=== PATIENT | female | born 1950 | race Caucasian/White ===

== ENCOUNTER → 2016-08-11 | Outpatient (CLI) | payer BC ==
[~2016-08-11] MED LIST: BNC20 PO; ESTR0.5T3 PO; IBUP-1451 PO; LEVO100T PO; LOSA1TAB38 PO; LPT40 PO; OMEP20CA9 PO; PRAV20TA PO; PRM625 PO
[2016-08-11 12:46] LABS: BASO % 0.4 %; BASO ABS # 0.03 K/uL (0-0.2); COMPLETE YES; HEMATOCRIT 37.4 % (37-47); IG% 0.1 %; LYMPH % 29.6 %; MEAN CELL VOLUME 92.3 fL (80-100); MEAN CORPUSCULAR HEMOGLOBIN 29.4 pg (25-34); MEAN CORPUSCULAR HGB CONC 31.8 g/dl (32-36); MONO % 8.3 %; NEUT % 58.6 %; PLATELET COUNT 220 K/uL (130-400); RED BLOOD COUNT 4.05 M/uL (4.2-5.4); WHITE BLOOD COUNT 6.76 K/uL (4.8-10.8)
[2016-08-11 13:02] LABS: ALT/SGPT 22 U/L (12-78); AST/SGOT 15 U/L (15-37); BLOOD UREA NITROGEN 21 mg/dl (7-18); BUN/CREATININE RATIO 21.4 (10-20); CALCIUM 9.2 mg/dl (8.5-10.1); CARBON DIOXIDE 27 mmol/L (21-32); CHLORIDE 107 mmol/L (98-107); CHOLESTEROL 191 mg/dl (0-200); CREATININE 0.98 mg/dl (0.60-1.20); GLUCOSE 99 mg/dl (70-99); POTASSIUM 4.3 mmol/L (3.5-5.1); SODIUM 141 mmol/L (136-145); TRIGLYCERIDES 95 mg/dl (0-150); VERY LOW DENSITY LIPOPROT CALC 19 mg/dl
[2016-08-11 13:12] LABS: ALB/GLOB RATIO 0.9 (0.9-2); ALKALINE PHOSPHATASE 77 U/L (45-117); CHOLESTEROL/HDL RATIO 2.4; HDL CHOLESTEROL 81 mg/dl; LDL CHOLESTEROL CALCULATED 91 mg/dl
[2016-08-11 13:42] LABS: ESTIMATED AVERAGE GLUCOSE 126 mg/dl; HA1C FLAG Normal (Normal)
== END | disposition home or self-care (01) ==
LOC: C.LABPBG 09:50
PROVIDERS: ATTEND Internal Medicine Pulmonary Disease
DX: H81.10 Benign paroxysmal vertigo, unspecified ear (principal); E11.9 Type 2 diabetes mellitus without complications; E78.5 Hyperlipidemia, unspecified; I10 Essential (primary) hypertension; E03.9 Hypothyroidism, unspecified; H81.09 Meniere's disease, unspecified ear

== ENCOUNTER → 2016-10-24 | Outpatient (CLI) | payer BC ==
--- NOTE | 2016-10-24 09:14 | DIAGNOSTIC IMAGING REPORT ---
BILIARY ULTRASOUND CLINICAL HISTORY: Right upper quadrant abdominal pain COMPARISON STUDY: CT scan dated 12/26/2014 FINDINGS: There is mild prominence the pancreatic duct which measures 4 mm. This was not present on the prior November 2014 CT scan. Additional workup should be considered. No pancreatic masses are are visualized ultrasonographically. No hepatic masses are visualized. The gallbladder appears sonographically normal. The common bile duct measures 5 mm. There is no right-sided hydronephrosis. IMPRESSION: 1. Mild pancreatic ductal dilatation, a finding which has developed since the prior November 2014 CT scan 2. Ultrasonographically normal gallbladder. No evidence of common bile duct dilatation. Electronically signed by: Justin Valentine M.D. 10/24/2016 9:12 AM Dictated Date/Time: 10/24/2016 9:08 AM
[2016-10-24 09:57] LABS: ALT/SGPT 32 U/L (12-78); AST/SGOT 21 U/L (15-37); BLOOD UREA NITROGEN 19 mg/dl (7-18); BUN/CREATININE RATIO 17.1 (10-20); CALCIUM 9.2 mg/dl (8.5-10.1); CARBON DIOXIDE 31 mmol/L (21-32); CHLORIDE 108 mmol/L (98-107); GLUCOSE 106 mg/dl (70-99); POTASSIUM 4.6 mmol/L (3.5-5.1); SODIUM 142 mmol/L (136-145)
[2016-10-24 09:59] LABS: ALB/GLOB RATIO 0.9 (0.9-2); ALKALINE PHOSPHATASE 95 U/L (45-117)
[2016-10-24 12:49] LABS: URINE APPEARANCE CLEAR (CLEAR); URINE BILIRUBIN NEG (NEG); URINE COLOR YELLOW; URINE EPITHELIAL CELL AUTO >30 /lpf (0-5); URINE NITRITE NEG (NEG); URINE PH 6.5 (4.5-7.5); UROBILINOGEN NEG (NEG)
[2016-10-24 12:56] LABS: MANUAL MICROSCOPIC REQUIRED? NO; REVIEW REQ? NO
== END | disposition home or self-care (01) ==
LOC: C.ULTR 08:17
PROVIDERS: ATTEND Physician Assistant Medical
DX: Z00.00 Encounter for general adult medical examination without abnormal findings (principal); R10.9 Unspecified abdominal pain

== ENCOUNTER → 2016-10-25 | Outpatient (CLI) | payer BC ==
--- NOTE | 2016-10-25 14:33 | MAMMOGRAPHY REPORT ---
BILATERAL DIGITAL SCREENING MAMMOGRAM WITH CAD: 10/25/2016 TECHNIQUE: Current study was also evaluated with a Computer Aided Detection (CAD) system. Bilatera l CC and MLO views were obtained. COMPARISON: Comparison is made to exams dated: 10/19/2015 mammogram, 10/14/2014 mammogram, 10/13/2013 mammogram, 10/10/2012 mammogram, 10/10/2011 mammogram, and 10/07/2010 mammogram - [facility]. BREAST COMPOSITION: There are scattered areas of fibroglandular density in both breasts. FINDINGS: No suspicious masses, calcifications, or areas of architectural distortion are noted in e ither breast. There has been no significant interval change compared to prior exams. IMPRESSION: ACR BI-RADS CATEGORY 1: NEGATIVE There is no mammographic evidence of malignancy. A 1 year screening mammogram is recommended. The p atient will receive written notification of the results. Approximately 10% of breast cancers are not detected with mammography. A negative mammographic repor t should not delay biopsy if a clinically suggestive mass is present. Aubrie Acevedo M.D. ah/:10/25/2016 08:38:23 Predatory Animal Hunter: Mariela ATKINSON(Magda)(M), [facility] letter sent: Normal 1/2 BI-RADS Code: ACR BI-RADS Category 1: Negative
== END | disposition home or self-care (01) ==
LOC: C.MAMM 08:22
PROVIDERS: ATTEND Internal Medicine Pulmonary Disease
DX: Z12.31 Encounter for screening mammogram for malignant neoplasm of breast (principal)

== ENCOUNTER → 2016-10-30 | Outpatient (CLI) | payer BC ==
[~2016-10-30] MED LIST changes: +OPTIRAY 320 IV PRN
--- NOTE | 2016-10-30 08:27 | DIAGNOSTIC IMAGING REPORT ---
ABDOMEN CT EXAMINATION PRE AND POST INTRAVENOUS CONTRAST CT DOSE: 1365.00 mGycm HISTORY: R93.5 Abnormal ultrasound of [id number] abnormal ultrasound. Pancreatic ductal distention. TECHNIQUE: Multiaxial CT images of the abdomen was performed pre and post intravenous contrast enhancement. COMPARISON STUDY: 12/26/2014 FINDINGS: Slight interval increase in prominence of the pancreatic duct at 3 mm. Moderate atrophy of the pancreatic body. Transaxial image 1:15 suggests possibility of a 8 mm focus of increased density at the proximal pancreatic duct region. No biliary ductal distention. Mild fatty infiltration of liver. No significant space-occupying lesion of the liver or spleen. Kidneys enhance uniformly. No significant upper abdominal adenopathy. Atherosclerotic change abdominal aorta. Gallbladder is somewhat contracted. IMPRESSION: 1. Slight prominence of the pancreatic duct at 3 mm with a possible 8 mm nodular density at the distal aspect of the pancreatic duct proximal to and/or adjacent to the sphincter area . 2. Endoscopic ultrasonography is suggested to exclude a lesion at this site. 3. Study is otherwise negative. Electronically signed by: James Reina M.D. 10/30/2016 8:26 AM Dictated Date/Time: 10/30/2016 8:17 AM
== END | disposition home or self-care (01) ==
LOC: C.CTS 07:09
PROVIDERS: ATTEND Physician Assistant Medical
DX: R93.5 Abnormal findings on diagnostic imaging of other abdominal regions, including retroperitoneum (principal)

== ENCOUNTER → 2016-12-04 | Outpatient (CLI) | payer BC ==
[~2016-12-04] MED LIST changes: +GADAVIST IV PRN; -OPTIRAY 320 IV PRN
--- NOTE | 2016-12-04 09:24 | DIAGNOSTIC IMAGING REPORT ---
MRI ABDOMEN COMBO CLINICAL HISTORY: Pancreatic ductal dilatation. Abnormal CT scan. Possible axillary mass. TECHNIQUE: Imaging was performed prior to and following IV contrast injection. The patient was scanned before and after the administration of 7.6 cc of intravenous Gadavist. COMPARISON STUDY: CT scan dated 10/30/2016 FINDINGS: No hepatic masses are visualized. There is no intra or extrahepatic biliary ductal dilatation. No gallbladder abnormalities are visualized. No splenic masses are visualized. No renal masses are visualized. No adrenal masses are visualized. There is no evidence of abdominal aortic dilatation. There is mild pancreatic ductal dilatation. The pancreatic duct appears somewhat beaded. There is an abrupt change in caliber of the pancreatic duct at the level of the head neck junction. The distal pancreatic duct is of normal caliber. No ampullary lesions are visualized. The abrupt change in ductal caliber could indicate a underlying pancreatic mass or stricture. There is slight infiltration of the fat adjacent to the pancreatic head. There is no pathologic adenopathy. IMPRESSION: 1. Mild pancreatic ductal dilatation with an abrupt change in the caliber of the pancreatic duct at the level of the head neck junction. There is subtle infiltration the fat adjacent to the pancreatic head. 2. A discrete pancreatic mass is not identified on this examination 3. The above-mentioned findings could either be on a neoplastic or inflammatory basis. Endoscopic ultrasound might be considered in follow-up. Electronically signed by: Justin Valentine M.D. 12/04/2016 9:22 AM Dictated Date/Time: 12/04/2016 9:08 AM
== END | disposition home or self-care (01) ==
LOC: C.MRI 07:19
PROVIDERS: ATTEND Internal Medicine Gastroenterology
DX: R93.8 Abnormal findings on diagnostic imaging of other specified body structures (principal)

== ENCOUNTER → 2017-02-09 | Day surgery (SDC) | payer BC ==
[2017-01-29 08:59] VITALS: BMI 31.0
[~2017-02-09] VITALS: Ht 154.9 cm; Wt 77.5 kg
[~2017-02-09] MED LIST changes: +ATROPINE SULFATE 0.1 MG/ML 5ML SYR IV PRN; -BNC20 PO; +DEXAMETHASONE SOD INJ 4 MG/ML VIAL ONE; +EpHEDrine SULFATE 50MG/5ML SYR ONE; +EpHEDrine SULFATE INJ 50 MG/ML AMP IV PRN; +FENTANYL CITRATE INJ 50 MCG/1 ML 2 ML VIAL IV PRN; +FENTANYL CITRATE INJ 50 MCG/1 ML 2 ML VIAL ONE; -GADAVIST IV PRN; +LACTATED RINGER'S 1000ML 1,000 ML IV SCH; +LIDOCAINE HCL 2% 2 ML VIAL (20MG/ML) ONE; +MIDAZOLAM HCL 1 MG/ML 2ML VIAL ONE; +ONDANSETRON INJ 2 MG/ML 2 ML VIAL IV PRN; +ONDANSETRON INJ 2 MG/ML 2 ML VIAL ONE; -PRM625 PO; +PROPOFOL IV EMULSION 10 MG/ML 20 ML VIAL IV ONE; +ROCURONIUM BROMIDE 10 MG/ML 5 ML VIAL ONE; +SODIUM CHLORIDE 0.9% 500ML 500 ML IV ONE; +SUCCINYLCHOLINE CHLORIDE 20 MG/ML 10 ML VIAL IV ONE
[2017-02-09 06:20] VITALS: BP 122/59; PULSE 45; TEMP 36.5; O2SAT 97; Ht 154.9 cm; Wt 77.5 kg
--- NOTE | 2017-02-09 08:03 | Endo History and Physical ---
History & Physical Date of Service: Feb 09, 2017. Chief Complaint: abnormal MR/Ct of pancreas Referring Physician: History of Present Illness abnormal MRI/CT with dilated duct / ? peripancreatic fullness Past Surgical History Hx Cardiac Surgery: No Hx Abdominal Surgery: Yes (HYSTERECTOMY) Hx Post-Op Nausea and Vomiting: No Hx Cancer Surgery: No Hx Thoracic Surgery: No Hx Orthopedic: Yes (BILATERAL SHOULDER REPAIRS, RT HAND CTR) Hx Urinary Tract Surgery: No Social History Smoking Status: Former Smoker Hx Substance Use: No Hx Alcohol Use: No Allergies Coded Allergies: No Known Allergies (Verified , 02/09/17) Current Medications Reported Home Medications Medications Dose Route/Sig Max Daily Dose Days Date Category Motrin (Ibuprofen) 800 Mg Tab 800 Mg PO Q8H PRN 02/09/17 Reported Cozaar (Losartan Potassium) 100 Mg Tab 100 Mg PO QAM 01/29/17 Reported Pravachol (Pravastatin Sodium) 20 Mg Tab 40 Mg PO QAM 01/29/17 Reported Estradiol 0.5 Mg Tab 1 Mg PO QAM 30 01/29/17 Reported Synthroid (Levothyroxine Sodium) 100 Mcg Tab 100 Mcg PO QAM 12/26/14 Reported Atorvastatin Calcium (Atorvastatin) 40 Mg Tab 40 Mg PO QAM 12/26/14 Reported Prilosec (Omeprazole) 20 Mg Cap 20 Mg PO DAILY 12/26/14 Reported Vital Signs Weight (Kilograms): 77.50 Height (Feet): 5 Height (Inches): 1 Date Time Temp Pulse Resp B/P (MAP) Pulse Ox O2 Delivery O2 Flow Rate FiO2 02/09/17 06:20 36.5 45 18 122/59 (80) 97 Room Air Physical Exam AAOx3 Nls1s2 Lungs CTA Abd soft NT/ND + BS - CCE Assessment and Plan EUS today
--- NOTE | 2017-02-09 09:52 | Discharge Instructions ---
Endoscopy Patient Instructions Date / Procedure(s) Performed Feb 09, 2017. Other Allergy Information Coded Allergies: No Known Allergies (Verified , 02/09/17) Discharge Date / Findings Feb 09, 2017. 1) nl CBD dilated PD in boddy/tail possible transition zone near head region- FNA performed No abn LNs ampulla wnl GB nl Medication Instructions Restart Stopped Medication(s): Reported Home Medications Medications Dose Route/Sig Max Daily Dose Days Date Category Motrin (Ibuprofen) 800 Mg Tab 800 Mg PO Q8H PRN 02/09/17 Reported Cozaar (Losartan Potassium) 100 Mg Tab 100 Mg PO QAM 01/29/17 Reported Pravachol (Pravastatin Sodium) 20 Mg Tab 40 Mg PO QAM 01/29/17 Reported Estradiol 0.5 Mg Tab 1 Mg PO QAM 30 01/29/17 Reported Synthroid (Levothyroxine Sodium) 100 Mcg Tab 100 Mcg PO QAM 12/26/14 Reported Atorvastatin Calcium (Atorvastatin) 40 Mg Tab 40 Mg PO QAM 12/26/14 Reported Prilosec (Omeprazole) 20 Mg Cap 20 Mg PO DAILY 12/26/14 Reported Reported Home Medications Medications Dose Route/Sig Max Daily Dose Days Date Category Motrin (Ibuprofen) 800 Mg Tab 800 Mg PO Q8H PRN 02/09/17 Reported Cozaar (Losartan Potassium) 100 Mg Tab 100 Mg PO QAM 01/29/17 Reported Pravachol (Pravastatin Sodium) 20 Mg Tab 40 Mg PO QAM 01/29/17 Reported Estradiol 0.5 Mg Tab 1 Mg PO QAM 30 01/29/17 Reported Synthroid (Levothyroxine Sodium) 100 Mcg Tab 100 Mcg PO QAM 12/26/14 Reported Atorvastatin Calcium (Atorvastatin) 40 Mg Tab 40 Mg PO QAM 12/26/14 Reported Prilosec (Omeprazole) 20 Mg Cap 20 Mg PO DAILY 12/26/14 Reported Provider Instructions Activity Restrictions - No exercising or heavy lifting for 24 hours. - Do not drink alcohol the day of the procedure. - Do not drive a car or operate machinery until the day after the procedure. - Do not make any important decisions or sign important papers in 24 hours after the procedure. Following Day: - Return to full activity which may include returning to work/school. Diet Start your diet with liquids and light foods (jello, soup, juice, toast). Then eat your usual diet if not nauseated. Treatment For Common After Affects For mild abdominal pain, bloating, or excessive gas: - Rest - Eat lightly - Lie on right side Follow-Up Information Follow-up with as scheduled Anesthesia Information What You Should Know You have had a procedure that required some medicine to reduce anxiety and discomfort. This treatment is called moderate sedation. After receiving the treatment, you may be sleepy, but you will be able to breathe on your own. The effects of the treatment may last for several hours. Follow these instructions along with Activity/Diet recommendations noted above: * Do NOT do anything where dizziness or clumsiness would be dangerous. * Rest quietly at home today, then you can be up and about tomorrow. * Have a responsible person stay with you the rest of today. * You may have had an I.V. today. If so, you may take the dressing off later today. Recommendations Call your doctor if: * Trouble breathing * Continuous vomiting for more than 24 hours * Temperature above 101 degrees * Severe abdominal pain or bloating * Pain not relieved by pain medicine ordered * There is increased drainage or redness from any incision * A large amount of rectal bleeding greater than 2-3 tablespoons. (If you had a polyp/s removed or have hemorrhoids, a small amount of blood - from the rectum is to be expected.) * You have any unanswered questions or concerns. IN THE EVENT OF A SERIOUS EMERGENCY, GO TO THE NEAREST EMERGENCY ROOM Your discharge instructions were prepared by provider Bartolome Cotter. Patient Instructions Signature Page Cherie Foley Patient (or Guardian) Signature/Date: I have read and understand the instructions given to me by my caregivers. Caregiver/RN/Doctor Signature/Date: The above-named patient and/or guardian has received patient instructions on this date. + Original Patient Signature Page (only) stays with chart. Please make copy for patient.
[2017-02-09 10:40] VITALS: BP 109/62; PULSE 55; TEMP 36.5; O2SAT 95
--- NOTE | 2017-02-09 10:44 | Anesthesiology Progress Note ---
Anesthesia Post Op Note Date & Time Feb 09, 2017 at 10:44 Vital Signs Pain Intensity: 0 Vital Signs Past 12 Hours Date Time Temp Pulse Resp B/P (MAP) Pulse Ox O2 Delivery O2 Flow Rate FiO2 02/09/17 10:30 36.2 02/09/17 10:26 58 16 115/59 97 02/09/17 10:26 57 16 02/09/17 10:21 60 18 119/66 96 02/09/17 10:21 60 18 02/09/17 10:16 61 17 126/66 96 02/09/17 10:16 63 17 02/09/17 10:11 58 16 119/60 100 02/09/17 10:11 58 16 02/09/17 10:06 60 17 02/09/17 10:06 61 17 137/69 100 02/09/17 10:04 128/74 02/09/17 09:56 36.4 61 16 129/61 100 Mask 10 02/09/17 06:20 36.5 45 18 122/59 (80) 97 Room Air Notes Mental Status: alert / awake / arousable, participated in evaluation Pt Amnestic to Procedure: Yes Nausea / Vomiting: adequately controlled Pain: adequately controlled Airway Patency, RR, SpO2: stable & adequate BP & HR: stable & adequate Hydration State: stable & adequate Anesthetic Complications: no major complications apparent
--- NOTE | 2017-02-09 10:50 | GI REPORT ---
Procedure Date: 02/09/2017 8:15 AM Procedure: Upper EUS Indications: Dilated pancreatic duct on MRI Medicines: General Anesthesia Complications: No immediate complications. Estimated blood loss: Minimal. Estimated Blood Loss: Estimated blood loss was minimal. Procedure: Pre-Anesthesia Assessment: - Prior to the procedure, a History and Physical was performed, and patient medications and allergies were reviewed. The patient's tolerance of previous anesthesia was also reviewed. The risks and benefits of the procedure and the sedation options and risks were discussed with the patient. All questions were answered, and informed consent was obtained. Prior Anticoagulants: The patient has taken no previous anticoagulant or antiplatelet agents. ASA Grade Assessment: II - A patient with mild systemic disease. After reviewing the risks and benefits, the patient was deemed in satisfactory condition to undergo the procedure. After obtaining informed consent, the endoscope was passed under direct vision. Throughout the procedure, the patient's blood pressure, pulse, and oxygen saturations were monitored continuously. The Endosonoscope was introduced through the mouth, and advanced to the second part of duodenum. The Endosonoscope was introduced through the mouth, and advanced to the second part of duodenum. The upper EUS was accomplished without difficulty. The patient tolerated the procedure well. Findings: Endoscopic Finding : The examined esophagus was normal. The entire examined stomach was normal. The examined duodenum was normal. The ampulla was normal. Endosonographic Finding : The esophagus, stomach and duodenum and adjacent structures were visualized endosonographically. There was no sign of significant endosonographic abnormality in the esophagus. No pathologic lymphadenopathy was identified. Endosonographic images of the stomach were unremarkable. No pathologic lymphadenopathy was identified. There was no sign of significant endosonographic abnormality in the examined duodenum. No pathologic lymphadenopathy was identified. There was no sign of significant endosonographic abnormality in the ampulla. No pathologic lymphadenopathy and no masses were identified. There was no sign of significant endosonographic abnormality in the common bile duct, in the entire main bile duct and in the gallbladder. The maximum diameter of the ducts were 4 mm. An unremarkable gallbladder, no pathologic lymphadenopathy, no stones, no biliary sludge and ducts of normal caliber were identified. There was no sign of significant endosonographic abnormality in the liver. Homogeneous parenchyma, no focal pathology and no pathologic lymphadenopathy were identified. The pancreatic duct had a dilated endosonographic appearance in the body of the pancreas and in the tail of the pancreas. The pancreatic duct measured up to 3 mm in diameter. The pancreatic duct had a narrowed endosonographic appearance in the pancreatic head. The pancreatic duct measured up to 1 mm in diameter. Fine needle aspiration for cytology was performed. Color Doppler imaging was utilized prior to needle puncture to confirm a lack of significant vascular structures within the needle path. Three passes were made with the 22 gauge needle using a transduodenal approach. A stylet was used. A axle bearing polisher was present to evaluate the adequacy of the specimen. The cellularity of the specimen was adequate. Final cytology results are pending. No lymphadenopathy seen. Impression: - Normal esophagus. - Normal stomach. - Normal examined duodenum. - Normal ampulla. - There was no sign of significant pathology in the esophagus. - Endosonographic images of the stomach were unremarkable. - There was no sign of significant pathology in the examined duodenum. - There was no sign of significant pathology in the ampulla. - There was no sign of significant pathology in the common bile duct, in the entire main bile duct and in the gallbladder. - There was no evidence of significant pathology in the liver. - The pancreatic duct had a dilated endosonographic appearance in the body of the pancreas and in the tail of the pancreas. The pancreatic duct measured up to 3 mm in diameter. - The pancreatic duct had a narrowed endosonographic appearance in the pancreatic head. The pancreatic duct measured up to 1 mm in diameter. Fine needle aspiration performed. Recommendation: - Discharge patient to home (ambulatory). - Advance diet as tolerated. - Await cytology results. - Return to GI clinic as previously scheduled. - Continue present medications. - Return to referring physician as previously scheduled. MD Bartolome Capone MD 02/09/2017 10:49:30 AM This report has been signed electronically. Note Initiated On: 02/09/2017 8:15 AM I attest to the content of the Intraoperative Record and orders documented therein, exceptions below
[2017-02-09 11:10] VITALS: BP 116/67; PULSE 55; O2SAT 97
[2017-02-09 11:40] VITALS: BP 121/66; PULSE 60; TEMP 36.4; O2SAT 96
== END | disposition home or self-care (01) ==
LOC: C.ACU 06:04
PROVIDERS: ATTEND Internal Medicine Gastroenterology
DX: K86.89 Other specified diseases of pancreas (principal); Z87.891 Personal history of nicotine dependence; Z79.899 Other long term (current) drug therapy

== ENCOUNTER → 2017-04-24 | Outpatient (CLI) | payer BC ==
[~2017-04-24] MED LIST changes: -ATROPINE SULFATE 0.1 MG/ML 5ML SYR IV PRN; -DEXAMETHASONE SOD INJ 4 MG/ML VIAL ONE; -EpHEDrine SULFATE 50MG/5ML SYR ONE; -EpHEDrine SULFATE INJ 50 MG/ML AMP IV PRN; -FENTANYL CITRATE INJ 50 MCG/1 ML 2 ML VIAL IV PRN; -FENTANYL CITRATE INJ 50 MCG/1 ML 2 ML VIAL ONE; -LACTATED RINGER'S 1000ML 1,000 ML IV SCH; -LIDOCAINE HCL 2% 2 ML VIAL (20MG/ML) ONE; -MIDAZOLAM HCL 1 MG/ML 2ML VIAL ONE; -ONDANSETRON INJ 2 MG/ML 2 ML VIAL IV PRN; -ONDANSETRON INJ 2 MG/ML 2 ML VIAL ONE; -PROPOFOL IV EMULSION 10 MG/ML 20 ML VIAL IV ONE; -ROCURONIUM BROMIDE 10 MG/ML 5 ML VIAL ONE; -SODIUM CHLORIDE 0.9% 500ML 500 ML IV ONE; -SUCCINYLCHOLINE CHLORIDE 20 MG/ML 10 ML VIAL IV ONE
--- NOTE | 2017-04-24 10:41 | DIAGNOSTIC IMAGING REPORT ---
R SHOULDER MIN 2 VIEWS ROUTINE CLINICAL HISTORY: RT SHOULDER PAIN pain COMPARISON: None. 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 Hyperostotic change of the acromion. Extensive osteophytic reaction. Postoperative changes of the humeral head with 2 anchors of metallic nature present. No evidence of dislocation. Moderate degenerative changes of the articular services the glenohumeral joint. There is no evidence for soft tissue swelling. IMPRESSION: Considerable degenerative and postoperative change. Chronic separation acromioclavicular joint. No acute process. The above report was generated using voice recognition software. It may contain grammatical, syntax or spelling errors. Electronically signed by: James Reina M.D. 04/24/2017 10:40 AM Dictated Date/Time: 04/24/2017 10:38 AM
== END | disposition home or self-care (01) ==
LOC: C.RAD1850 10:24
PROVIDERS: ATTEND Physician Assistant Medical
DX: M25.511 Pain in right shoulder (principal); M89.8X1 Other specified disorders of bone, shoulder; Z98.890 Other specified postprocedural states

== ENCOUNTER → 2017-05-09 | Outpatient (CLI) | payer BC | END | disposition home or self-care (01) | LOC: C.PAPS 14:31 | PROVIDERS: ATTEND Obstetrics & Gynecology | DX: Z12.4 Encounter for screening for malignant neoplasm of cervix (principal) ==

== ENCOUNTER → 2017-09-03 | Outpatient (CLI) | payer BC ==
[2017-09-03 11:35] LABS: BASO % 0.3 %; BASO ABS # 0.02 K/uL (0-0.2); EOS % 2.9 %; EOS ABS # 0.17 K/uL (0-0.5); HEMATOCRIT 36.3 % (37-47); HEMOGLOBIN 11.8 g/dL (12.0-16.0); IG# 0.01 K/uL (0.00-0.02); LYMPH % 33.3 %; LYMPH ABS # 1.94 K/uL (1.2-3.4); MEAN CELL VOLUME 92.8 fL (80-100); MEAN CORPUSCULAR HEMOGLOBIN 30.2 pg (25-34); MEAN CORPUSCULAR HGB CONC 32.5 g/dl (32-36); MEAN PLATELET VOLUME 9.8 fL (7.4-10.4); MONO % 9.3 %; MONO ABS # 0.54 K/uL (0.11-0.59); NEUT ABS # 3.15 K/uL (1.4-6.5); PLATELET COUNT 235 K/uL (130-400); RED CELL DISTRIBUTION WIDTH CV 13.6 % (11.5-14.5); RED CELL DISTRIBUTION WIDTH SD 46.1 fL (36.4-46.3); WHITE BLOOD COUNT 5.83 K/uL (4.8-10.8)
[2017-09-03 11:51] LABS: ALBUMIN 3.6 gm/dl (3.4-5.0); ALT/SGPT 30 U/L (12-78); AST/SGOT 16 U/L (15-37); BLOOD UREA NITROGEN 21 mg/dl (7-18); CALCIUM 9.8 mg/dl (8.5-10.1); CARBON DIOXIDE 27 mmol/L (21-32); CREATININE 0.87 mg/dl (0.60-1.20); GLUCOSE 112 mg/dl (70-99); POTASSIUM 4.5 mmol/L (3.5-5.1); SODIUM 141 mmol/L (136-145)
[2017-09-03 11:57] LABS: HEMOGLOBIN A1C 6.3 % (4.5-5.6)
[2017-09-03 12:01] LABS: ALKALINE PHOSPHATASE 91 U/L (45-117); CHOLESTEROL 179 mg/dl (0-200); LDL CHOLESTEROL CALCULATED 99 mg/dl; TOTAL PROTEIN 7.7 gm/dl (6.4-8.2)
[2017-09-03 12:11] LABS: CREATININE RANDOM URINE 79.7 mg/dl
== END | disposition home or self-care (01) ==
LOC: C.LABPBG 09:19
PROVIDERS: ATTEND Internal Medicine Pulmonary Disease
DX: E11.9 Type 2 diabetes mellitus without complications (principal)

== ENCOUNTER → 2017-11-09 | Outpatient (CLI) | payer BC | END | disposition home or self-care (01) | LOC: C.MAMM 13:17 | PROVIDERS: ATTEND Internal Medicine Pulmonary Disease | DX: Z12.31 Encounter for screening mammogram for malignant neoplasm of breast (principal); M25.511 Pain in right shoulder ==

== ENCOUNTER 2018-07-01 09:35 | Inpatient (IN) ==
[2018-07-01] MEDS ORDERED: ONDANSETRON INJ 2 MG/ML 2 ML VIAL IV STA (10:37)
[2018-07-01] MEDS ORDERED: SODIUM CHLORIDE 0.9% 1000ML 1,000 ML IV SCH (10:45)
[2018-07-01 10:50] LABS: Eosinophils # (auto) 0.06 K/uL (0-0.5); Eosinophils % (auto) 1.4 %; Hematocrit (blood only) 27.3 % (37-47); Hemoglobin 9.1 g/dL (12.0-16.0); Immature Granulocytes # (auto) 0.06 K/uL (0.00-0.02); Immature Granulocytes % (auto) 1.4 %; Lymphocytes # (auto) 0.26 K/uL (1.2-3.4); Lymphocytes % (auto) 6.2 %; Mean Corpuscular Hgb Conc 33.3 g/dL (32-36); Mean Corpuscular Volume 89.2 fL (80-100); Mean Platelet Volume 10.2 fL (7.4-10.4); Neutrophils # (auto) 3.82 K/uL (1.4-6.5); Platelet Count 114 K/uL (130-400); RDW Coefficient of Variation 13.5 % (11.5-14.5); RDW Standard Deviation 43.5 fL (36.4-46.3); Red Blood Count 3.06 M/uL (4.2-5.4)
[2018-07-01 11:00] LABS: Alanine Aminotransferase 30 U/L (12-78); Albumin Level 2.2 gm/dl (3.4-5.0); Aspartate Aminotransferase 27 U/L (15-37); BUN Creatinine Ratio 16.8 (10-20); Blood Urea Nitrogen 23 mg/dl (7-18); Calcium 8.3 mg/dl (8.5-10.1); Carbon Dioxide 28 mmol/L (21-32); Chloride 96 mmol/L (98-107); Est GFR (African American) 47.4; Est GFR (Non-African American) 40.9; Glucose 163 mg/dl (70-99); Potassium 2.9 mmol/L (3.5-5.1); Sodium 132 mmol/L (136-145)
[2018-07-01] MEDS: fentaNYL citrate 100 MCG/2 ML VIAL IV PRN ×2 (11:00→12:52)
[2018-07-01 11:05] LABS: Albumin Globulin Ratio 0.5 (0.9-2); Alkaline Phosphatase 94 U/L (45-117); Bilirubin,Total 1.1 mg/dl (0.2-1); Globulin 4.1 gm/dl (2.5-4.0); Total Protein 6.3 gm/dl (6.4-8.2); Troponin I < 0.015 ng/ml (0-0.045)
[2018-07-01] MEDS: SODIUM CHLORIDE 0.9% 1000ML 1,000 ML IV SCH ×3 (11:06→18:29)
[2018-07-01] MEDS ORDERED: OPTIRAY 320 125ml IV PRN (11:21)
--- NOTE | 2018-07-01 11:48 | CT Scan Report ---
CT OF THE ABDOMEN AND PELVIS WITH CONTRAST CLINICAL HISTORY: Abdominal pain and vomiting. Recent Whipple procedure. COMPARISON STUDY: CT of the abdomen and pelvis April 10, 2018. Chest CT April 24, 2018. TECHNIQUE: Following IV administration of 116 mL of Optiray-320, axial images of the abdomen and pelv is were obtained from the lung bases to the proximal femurs. Images were reviewed in the axial, sagit steve, and coronal planes. IV contrast was administered without complication. Automated exposure contr ol was utilized for the study. A dose lowering technique was utilized adhering to the principles of ALARA. CT DOSE: 400.54 mGy.cm FINDINGS: No pneumatosis, free air or portal venous gas is present. Fatty infiltration of the liver i s noted. There are no suspicious hepatic lesions. A linear hypodensity within the inferior right hepa tic lobe is likely postsurgical. The patient is status post Whipple procedure. There is no residual p ancreatic or biliary ductal dilatation. The main, left and right portal veins are patent. There is mi nimal infiltration and trace fluid within the operative bed. There is no fluid collection is suggest an abscess. There is no evidence for a bowel obstruction. There is no lymphadenopathy. No omental/per itoneal nodule is noted. No suspicious osseous lesions are present. There is moderate plaque of the a bdominal aorta. Major vasculature is patent. There is no hydronephrosis. IMPRESSION: 1. Postoperative findings following recent Whipple procedure. Mild infiltration and trace fluid withi n the operative bed which is not unexpected. No abscess. No bowel obstruction. 1.6 cm linear hypodens ity within the inferior right hepatic lobe which is likely postsurgical. 2. No evidence for residual/recurrent malignancy. 3. Fatty infiltration of the liver. Electronically signed by: Alex Brothers M.D. 07/01/2018 11:47 AM
--- NOTE | 2018-07-01 12:47 | Ultrasound Report ---
RIGHT LOWER EXTREMITY VENOUS DOPPLER CLINICAL HISTORY: Right lower extremity pain and swelling. COMPARISON STUDY: No previous studies for comparison. TECHNIQUE: Sonography of the deep venous system of the right lower extremity was performed. Compress ion and augmentation were evaluated. FINDINGS: The right common femoral, superficial femoral and popliteal veins were compressible. Augme ntation was normal. Flow was shown within the deep calf vessels. IMPRESSION: No evidence of deep venous thrombus within the right lower extremity. Electronically signed by: Alex Brothers M.D. 07/01/2018 12:45 PM
[2018-07-01] MEDS: POTASSIUM CHLORIDE / WTR 10 MEQ/100 ML PLCT IV SCH ×2 (12:53→14:02)
[2018-07-01 16:15] LABS: Appearance Urine Clear (Clear); Bacteria Urine Automated Negative (Negative); Bilirubin Urine Negative (Negative); Color Urine Yellow; Epithelial Cell Urine Auto >30 /lpf (0-5); Glucose Urine UA Negative (Negative); Ketones Urine Negative (Negative); Leukocyte Esterase Urine Negative (Negative); Nitrite Urine Negative (Negative); Protein Urine Trace (Negative); Specific Gravity Urine > 1.045 (1.000-1.030); Urobilinogen Urine Negative (Negative); pH Urine 5.5 (4.5-7.5)
--- NOTE | 2018-07-01 17:25 | History & Physical Report ---
Date of Service July 01, 2018 Assessment & Plan (1) Hypotension: Blood pressure 77/54 on arrival, improved with IVF. Blood pressure presently 103/62. Most likely secondary to volume depletion in setting of GI losses, nausea/vomiting and poor PO intake. SIRS negative, H/H stable. * Continue maintenance fluids and electrolyte repletion * Hold Losartan * Monitor blood pressure * (2) Hypokalemia: K=2.9. Patient was given 10mEq in the ER. * Will administer 60MEq KCl x 1 * Magnesium x 2 gm * Repeat labs in AM * (3) Dehydration: In setting of GI losses and poor PO intake * NSS at 125mL/hr x 2 liters * Electrolyte repletion * Repeat labs in AM * (4) Nausea & vomiting: S/p chemotherapy. * Zofran PRN * Compazine PRN * (5) Hypothyroid: Chronic. * Continue Synthroid * (6) GERD (gastroesophageal reflux disease): Chronic * Protonix 40mg po q daily * (7) Pancreatic mass: Malignancy. S/p whipple now on chemotherapy * Continue Creon * Continue to monitor * F/E/N- NSS at 125mL/hr x 2 liters, monitor electrolytes and replete as needed - Mg x 2gm, KCL x 60Meq, Regular diet as tolerated Ppx - Lovenox, Protonix Code - Full per discussion with patient Dispo - Admit to medical floor History of Present Illness Chief Complaint: Intractable nausea vomiting, hypotension Primary Care Provider: Ari Hendrix MD Patient is a 67-year-old female with history of pancreatic adenocarcinoma status post Whipple procedure performed 05/07/18 at [place], on adjuvant chemotherapy presenting with intractable nausea and vomiting, p.o. intolerance. Patient received chemotherapy on 06/28/18. States that since then she has had 4-5 episodes of nonbloody/nonbilious vomiting daily. Unable to tolerate p.o. or keep water down. Patient also reports weakness, dizziness, decreased urine output. Patient states that she typically has mild nausea associated with receiving chemo which resolves in 2 days. Reports that this nausea is more severe and longer lasting than prior episodes. No additional complaints. Upon arrival to the ER patient was found to be mildly hypotensive. She was administered 2 L of normal saline with improvement in blood pressure ER course: Fentanyl, Zofran, KCl 10 mEq, normal saline times 2 L Allergies Allergy/AdvReac Type Severity Reaction Status Date / Time naltrexone Allergy Vomiting Verified 07/01/18 10:25 Home Medications Home Medications Medication Instructions Recorded Confirmed Type capecitabine 1,500 mg PO BID PRN 07/01/18 07/01/18 History lansoprazole [Prevacid] 30 mg PO DAILY 07/01/18 07/01/18 History levothyroxine 100 mcg PO DAILY 07/01/18 07/01/18 History vkjzkm-lxfmkjbo-haocmrd [Creon] 1 cap PO DIRECTED 07/01/18 07/01/18 History xwlduz-trshthzg-bsukksf [Creon] 2 cap PO WM 07/01/18 07/01/18 History loperamide [Imodium A-D] 2 mg PO DIRECTED PRN 07/01/18 07/01/18 History losartan 100 mg PO DAILY 07/01/18 07/01/18 History ondansetron HCl [Zofran] 8 mg PO DAILY PRN 07/01/18 07/01/18 History Past Med/Surg History Family History Other Cancer Diabetes Social History marital status: Current Living Situation: Spouse and Family current occupational status: retired Other Information That Helps Us Care for You: No Feels Safe at Home: Yes Safety Concerns: Feels Safe At This Time Smoking Status: Former smoker Do You Dip or Chew Tobacco: No Second Hand Exposure: No Tobacco Cessation Education Requested by Patient: No Hx Alcohol Use: No Hx Substance Use: No Beliefs That Will Affect Care: None Preferred Language: Romanian Communication Ability: Effective Insurance Claims Representative Required: No Review of Systems All systems reviewed & are unremarkable except as noted in HPI & below Physical Exam 2 Vital Signs (Past 24 Hours): Last Vital Signs Temp 36.8 C 07/01/18 09:40 Pulse 86 07/01/18 17:01 Resp 23 07/01/18 17:01 BP 93/33 L 07/01/18 17:01 Pulse Ox 99 07/01/18 17:01 Physical Exam: General: patient resting comfortably, NAD, ill appearing, AA& O x 4 Skin: warm, dry, intact, no rashes or lesions HEENT: NC/AT, PERRL, EOMI, anicteric sclera, conjunctiva without injection, external ear normal to inspection and nontender, nares patent, dry mucus membranes, dentition intact, no oropharyngeal lesions, neck supple, trachea midline, no LAD, no thyromegaly, no JVD Heart: +S1/S2, regular, no m/r/g, left chest port, no erythema/edema/drainage Lungs: equal air entry bilaterally, no rales/rhonchi/wheezes Abd: +BS, soft, NT/ND, no masses/organomegaly/ascites Ext: warm, 2+ pulses in UE/LE bilaterally, no clubbing/cyanosis or edema Neuro: nonfocal, patient AA&O x 4, speech intact, no facial droop, moving all extremities on command with equal strength 5/5 Results & Data Laboratory Results Lab Results 07/01/18 07/01/18 07/01/18 Range/Units 10:05 10:05 11:11 WBC 4.20 L (4.8-10.8) K/uL RBC 3.06 L (4.2-5.4) M/uL Hgb 9.1 L (12.0-16.0) g/dL Hct 27.3 L (37-47) % MCV 89.2 (80-100) fL MCH 29.7 (25-34) pg MCHC 33.3 (32-36) g/dL RDW Std Deviation 43.5 (36.4-46.3) fL RDW Coeff of Maria Fernanda 13.5 (11.5-14.5) % Plt Count 114 L (130-400) K/uL MPV 10.2 (7.4-10.4) fL Immature Gran % (Auto) 1.4 % Neut % (Auto) 91.0 % Lymph % (Auto) 6.2 % [place] % (Auto) 0.0 % Eos % (Auto) 1.4 % Baso % (Auto) 0.0 % Immature Gran # (Auto) 0.06 H (0.00-0.02) K/uL Neut # (Auto) 3.82 (1.4-6.5) K/uL Lymph # (Auto) 0.26 L (1.2-3.4) K/uL [place] # (Auto) 0.00 L (0.11-0.59) K/uL Eos # (Auto) 0.06 (0-0.5) K/uL Baso # (Auto) 0.00 (0-0.2) K/uL PT (9.0-12.0) Seconds INR (0.9-1.1) Sodium 132 L (136-145) mmol/L Potassium 2.9 L (3.5-5.1) mmol/L Chloride 96 L (98-107) mmol/L Carbon Dioxide 28 (21-32) mmol/L Anion Gap 8.0 (3-11) BUN 23 H (7-18) mg/dl Creatinine 1.34 H (0.6-1.2) mg/dl Est Cr Clr Drug Dosing Not Reportable Est GFR ( Amer) 47.4 Est GFR (Non-Af Amer) 40.9 BUN/Creatinine Ratio 16.8 (10-20) Glucose 163 H (70-99) mg/dl POC Lactic Acid Oliver 1.75 H (0.90-1.70) mmol/L Calcium 8.3 L (8.5-10.1) mg/dl Phosphorus (2.5-4.9) mg/dl Total Bilirubin 1.1 H (0.2-1) mg/dl AST 27 (15-37) U/L ALT 30 (12-78) U/L Alkaline Phosphatase 94 (45-117) U/L Troponin I < 0.015 (0-0.045) ng/ml Total Protein 6.3 L (6.4-8.2) gm/dl Albumin 2.2 L (3.4-5.0) gm/dl Globulin 4.1 H (2.5-4.0) gm/dl Albumin/Globulin Ratio 0.5 L (0.9-2) Lipase 31 L (73-393) U/L Urine Color Urine Appearance (Clear) Urine pH (4.5-7.5) Ur Specific [place] (1.000-1.030) Urine Protein (Negative) Urine Glucose (UA) (Negative) Urine Ketones (Negative) Urine Blood (Negative) Urine Nitrite (Negative) Urine Bilirubin (Negative) Urine Urobilinogen (Negative) Ur Leukocyte Esterase (Negative) Urine WBC (Auto) (0-5) /hpf Urine RBC (Auto) (0-4) /hpf U Hyaline Cast (Auto) (0-5) /lpf U Epithel Cells (Auto) (0-5) /lpf Urine Bacteria (Auto) (Negative) 12/31/18 12/31/18 12/31/18 Range/Units 15:57 18:47 18:47 WBC (4.8-10.8) K/uL RBC (4.2-5.4) M/uL Hgb (12.0-16.0) g/dL Hct (37-47) % MCV (80-100) fL MCH (25-34) pg MCHC (32-36) g/dL RDW Std Deviation (36.4-46.3) fL RDW Coeff of Maria Fernanda (11.5-14.5) % Plt Count (130-400) K/uL MPV (7.4-10.4) fL Immature Gran % (Auto) % Neut % (Auto) % Lymph % (Auto) % [place] % (Auto) % Eos % (Auto) % Baso % (Auto) % Immature Gran # (Auto) (0.00-0.02) K/uL Neut # (Auto) (1.4-6.5) K/uL Lymph # (Auto) (1.2-3.4) K/uL [place] # (Auto) (0.11-0.59) K/uL Eos # (Auto) (0-0.5) K/uL Baso # (Auto) (0-0.2) K/uL PT 13.1 H (9.0-12.0) Seconds INR 1.3 H (0.9-1.1) Sodium (136-145) mmol/L Potassium (3.5-5.1) mmol/L Chloride (98-107) mmol/L Carbon Dioxide (21-32) mmol/L Anion Gap (3-11) BUN (7-18) mg/dl Creatinine (0.6-1.2) mg/dl Est Cr Clr Drug Dosing Est GFR ( Amer) Est GFR (Non-Af Amer) BUN/Creatinine Ratio (10-20) Glucose (70-99) mg/dl POC Lactic Acid Oliver (0.90-1.70) mmol/L Calcium (8.5-10.1) mg/dl Phosphorus 2.3 L (2.5-4.9) mg/dl Total Bilirubin (0.2-1) mg/dl AST (15-37) U/L ALT (12-78) U/L Alkaline Phosphatase (45-117) U/L Troponin I (0-0.045) ng/ml Total Protein (6.4-8.2) gm/dl Albumin (3.4-5.0) gm/dl Globulin (2.5-4.0) gm/dl Albumin/Globulin Ratio (0.9-2) Lipase (73-393) U/L Urine Color Yellow Urine Appearance Clear (Clear) Urine pH 5.5 (4.5-7.5) Ur Specific [place] > 1.045 H (1.000-1.030) Urine Protein Trace H (Negative) Urine Glucose (UA) Negative (Negative) Urine Ketones Negative (Negative) Urine Blood Negative (Negative) Urine Nitrite Negative (Negative) Urine Bilirubin Negative (Negative) Urine Urobilinogen Negative (Negative) Ur Leukocyte Esterase Negative (Negative) Urine WBC (Auto) 5-10 H (0-5) /hpf Urine RBC (Auto) 0-4 (0-4) /hpf U Hyaline Cast (Auto) 1-5 (0-5) /lpf U Epithel Cells (Auto) >30 H (0-5) /lpf Urine Bacteria (Auto) Negative (Negative) Diagnostic Findings RIGHT LOWER EXTREMITY VENOUS DOPPLER CLINICAL HISTORY: Right lower extremity pain and swelling. COMPARISON STUDY: No previous studies for comparison. TECHNIQUE: Sonography of the deep venous system of the right lower extremity was performed. Compression and augmentation were evaluated. FINDINGS: The right common femoral, superficial femoral and popliteal veins were compressible. Augmentation was normal. Flow was shown within the deep calf vessels. IMPRESSION: No evidence of deep venous thrombus within the right lower extremity. Electronically signed by: Alex Brothers M.D. 07/01/2018 12:45 PM Dictated: 07/01/18 1245 Transcribed: 07/01/[address] OF THE ABDOMEN AND PELVIS WITH CONTRAST CLINICAL HISTORY: Abdominal pain and vomiting. Recent Whipple procedure. COMPARISON STUDY: CT of the abdomen and pelvis April 10, 2018. Chest CT April 24, 2018. TECHNIQUE: Following IV administration of 116 mL of Optiray-320, axial images of the abdomen and pelvis were obtained from the lung bases to the proximal femurs. Images were reviewed in the axial, sagittal, and coronal planes. IV contrast was administered without complication. Automated exposure control was utilized for the study. A dose lowering technique was utilized adhering to the principles of ALARA. CT DOSE: 400.54 mGy.cm FINDINGS: No pneumatosis, free air or portal venous gas is present. Fatty infiltration of the liver is noted. There are no suspicious hepatic lesions. A linear hypodensity within the inferior right hepatic lobe is likely postsurgical. The patient is status post Whipple procedure. There is no residual pancreatic or biliary ductal dilatation. The main, left and right portal veins are patent. There is minimal infiltration and trace fluid within the operative bed. There is no fluid collection is suggest an abscess. There is no evidence for a bowel obstruction. There is no lymphadenopathy. No omental/ peritoneal nodule is noted. No suspicious osseous lesions are present. There is moderate plaque of the abdominal aorta. Major vasculature is patent. There is no hydronephrosis. IMPRESSION: 1. Postoperative findings following recent Whipple procedure. Mild infiltration and trace fluid within the operative bed which is not unexpected. No abscess. No bowel obstruction. 1.6 cm linear hypodensity within the inferior right hepatic lobe which is likely postsurgical. 2. No evidence for residual/recurrent malignancy. 3. Fatty infiltration of the liver. Electronically signed by: Alex Brothers M.D. 07/01/2018 11:47 AM Dictated: 07/01/18 1138 Transcribed: 07/01/18 1138 ECG Additional Comments: NSR at 93, PACs, FP=739, QRS=84, MAq=917, no evidence of acute ischemia Code Status & VTE Plan Code Status full VTE Prophylaxis Plan VTE Prophylaxis will be ordered: Yes Critical Care Time Critical Care Time: No _ (1) Hypothyroid Hypothyroidism type: unspecified Qualified Code(s): E03.9 - Hypothyroidism, unspecified (2) GERD (gastroesophageal reflux disease) Esophagitis presence: esophagitis presence not specified Qualified Code(s): K21.9 - Gastro-esophageal reflux disease without esophagitis (3) Nausea & vomiting Vomiting type: unspecified Vomiting Intractability: intractable Qualified Code(s): R11.2 - Nausea with vomiting, unspecified (4) Hypotension Hypotension type: other hypotension type Trimester: Qualified Code(s): I95.89 - Other hypotension
[2018-07-01] MEDS ORDERED: ACETAMINOPHEN 325 MG TAB PO PRN (18:16)
[2018-07-01] MEDS ORDERED: PROCHLORPERAZINE MALEATE 5 MG TAB PO PRN (18:16)
[2018-07-01] MEDS ORDERED: POTASSIUM CHLORIDE PWD 20 MEQ PACK PO ONE (18:30)
[2018-07-01] MEDS ORDERED: PANCREAZE (LIPASE 10,500U) CAP PO PRN (18:30)
[2018-07-01] MEDS ORDERED: Nursing to Pharmacy Communication ONE (18:47)
[2018-07-01 19:13] LABS: INR 1.3 (0.9-1.1); Prothrombin Time 13.1 Seconds (9.0-12.0)
[2018-07-01] MEDS: ENOXAPARIN INJ 40 MG/0.4 ML SYR SQ SCH ×2 (19:24→20:55)
[2018-07-01] MEDS: MAGNESIUM SULFATE / D5W 1 GM/100 ML BAG IV SCH ×2 (19:27→20:55)
[2018-07-01] MEDS: ONDANSETRON INJ 2 MG/ML 2 ML VIAL IV PRN (19:28)
[2018-07-01] MEDS: PANCREAZE (LIPASE 16,800U) CAP PO SCH (19:37)
--- NOTE | 2018-07-01 19:39 | Emergency Department Note ---
Entered by Ariella Olivas acting as a scribe for History of Present Illness General Chief complaint: Vomiting Stated complaint: NAUSEA,VOMITING SINCE SUNDAY Source: patient and other (accounting manager cpa) Mode of arrival: ambulatory Limitations: no limitations History of Present Illness Provider complaint: Vomiting Onset (ago): day(s) 3 Location: mouth Radiation: non-radiation Pain Consistency: + other (persistent) Maximum Pain Intensity: 4 Quality: + other (vomiting) Relieved By: + none Exacerbated By: + eating Associated symptoms: + other (Additional symptoms: diarrhea (now resolved), right leg pain, epigastric abdominal pain, weight loss, hypokalemia. Denies: blood in vomit, hematochezia, abdominal distension, right leg swelling); no fever/chills The patient is a 67 year old female with a history of a pancreatic mass, whipple procedure, kidney mass, kidney stones, appendectomy, hysterectomy, hyperthyroidism, GERD, hyperlipidemia, hypertension, and vertigo who presents to the Emergency Room with complaints of persistent vomiting starting 3 days ago. The patient reports that she vomits every time she eats. She states that she had also been experiencing diarrhea until she took Immodium 5 days ago, and she notes that she has not had a bowel movement since. The patient also complains of right leg pain and epigastric abdominal pain that has been constant and unchanged since her whipple procedure performed by Dr. Zaragoza in [place] on May 07. Per accounting manager cpa, the patient lost 25 pounds while she was at [place]. The patient denies any blood in her vomiting, fever, hematochezia, abdominal distension, and right leg swelling, in addition to any recent sick contact. She further reports that she receives chemotherapy every Sunday and last had chemotherapy 3 days ago. She notes that her potassium was low and that she did not inform her doctor about her vomiting symptoms at the time. The patient states that her PCP is Dr. Hendrix and her oncologist is Dr. Bay. Home Medications Home Medications Medication Instructions Recorded Confirmed Type capecitabine 1,500 mg PO BID PRN 07/01/18 07/01/18 History lansoprazole [Prevacid] 30 mg PO DAILY 07/01/18 07/01/18 History levothyroxine 100 mcg PO DAILY 07/01/18 07/01/18 History lmfmyr-tllbiuoa-bdzclam [Creon] 1 cap PO DIRECTED 07/01/18 07/01/18 History irnzcz-cplzxhht-kavxfrs [Creon] 2 cap PO WM 07/01/18 07/01/18 History loperamide [Imodium A-D] 2 mg PO DIRECTED PRN 07/01/18 07/01/18 History losartan 100 mg PO DAILY 07/01/18 07/01/18 History ondansetron HCl [Zofran] 8 mg PO DAILY PRN 07/01/18 07/01/18 History Allergies Allergy/AdvReac Type Severity Reaction Status Date / Time naltrexone Allergy Vomiting Verified 07/01/18 10:25 Past Med/Surg History Family History Other Cancer Diabetes Social History marital status: Current Living Situation: Spouse and Family current occupational status: retired Other Information That Helps Us Care for You: No Feels Safe at Home: Yes Safety Concerns: Feels Safe At This Time Smoking Status: Former smoker Do You Dip or Chew Tobacco: No Second Hand Exposure: No Tobacco Cessation Education Requested by Patient: No Hx Alcohol Use: No Hx Substance Use: No Beliefs That Will Affect Care: None Communication Ability: Effective Review of Systems See HPI for pertinent positives & negatives. and A total of 10 systems reviewed and were otherwise negative Physical Exam Vital Signs Vital Signs - 24 hr 07/02/18 07:47 07/02/18 08:00 07/02/18 11:52 Temperature 37 C 36.6 C Temperature Source Oral Oral Pulse Rate 76 Pulse Rate [Apical] 93 H 86 Pulse Rate [Finger] Pulse Rhythm [Finger] Pulse Strength [Finger] Respiratory Rate 18 18 Respiratory Effort / Characteristics Respiratory Depth Respiratory Pattern Blood Pressure [Right Arm] 110/68 124/77 Blood Pressure Mean [Right Arm] 82 92 Blood Pressure Position [Right Arm] Pulse Oximetry 97 98 Oxygen Delivery Method 07/02/18 15:17 07/02/18 15:46 07/03/18 00:00 Temperature 36.7 C Temperature Source Oral Pulse Rate 90 Pulse Rate [Apical] 92 H Pulse Rate [Finger] Pulse Rhythm [Finger] Pulse Strength [Finger] Respiratory Rate 20 Respiratory Effort / Characteristics Non-Labored Non-Labored Spontaneous Respiratory Depth Normal Normal Respiratory Pattern Regular Regular Blood Pressure [Right Arm] 132/81 Blood Pressure Mean [Right Arm] 98 Blood Pressure Position [Right Arm] Lying Pulse Oximetry 97 Oxygen Delivery Method Room Air Room Air Room Air 07/03/18 00:13 07/03/18 04:36 Temperature 36.7 C 36.5 C Temperature Source Oral Oral Pulse Rate Pulse Rate [Apical] Pulse Rate [Finger] 77 86 Pulse Rhythm [Finger] Regular Regular Pulse Strength [Finger] Normal Normal Respiratory Rate 20 20 Respiratory Effort / Characteristics Non-Labored Non-Labored Respiratory Depth Normal Normal Respiratory Pattern Regular Regular Blood Pressure [Right Arm] 122/71 130/72 Blood Pressure Mean [Right Arm] 88 91 Blood Pressure Position [Right Arm] Lying Lying Pulse Oximetry 96 97 Oxygen Delivery Method Room Air Room Air Vital signs reviewed. The patient was noted to be hypotensive. General: Chronically ill-appearing female, in no significant distress. HEENT: No scleral icterus, PERRLA, neck supple. Atraumatic. Cardiovascular: Regular rate and rhythm, no extra sounds. Pulmonary: Clear to auscultation bilaterally, normal work of breathing. Abdomen: Soft, nondistended, positive bowel sounds. Tenderness to epigastric region. Musculoskeletal: Atraumatic, no peripheral edema. Tenderness to the right leg. Neurologic: Patient awake alert and oriented x 3 Skin: Warm, dry, no rash Course 1035: Past medical records reviewed. The patient was evaluated in room B7, and a complete history and physical examination were performed. 1325: I checked on the patient and her blood pressure is up to 96. The patient is getting some more IV fluids and finishing her potassium. 1536: The patient' blood pressure is still low, so I reviewed the patient's case with Dr. Osacr - Ayesha, Lolly Okeefe. Dr. Oscar will evaluate the patient for further management. 1550: I updated the patient on her results and she is agreeable to admission. Consultations Consultation #1: The patient' blood pressure is still low, so I reviewed the patient's case with Dr. Oscar - Ayesha, Lolly Okeefe. Dr. Oscar will evaluate the patient for further management. Time: 15:36 Administered Medications Acetaminophen (Ofirmev) 1,000 mg IV Q8H PRN PRN Reason: Pain Stop: 08/01/18 19:31 Last Admin: 07/02/18 19:49 Dose: 1,000 mg Lipase/Protease/Amylase (Pancreaze (Lipase 10,500u)) 3 cap PO UD PRN; Protocol PRN Reason: with snacks Stop: 07/31/18 18:29 Last Admin: 07/01/18 19:25 Dose: 3 cap Lipase/Protease/Amylase (Pancreaze 11168 Unit) 4 cap PO TIDM THEA; Protocol Stop: 07/31/18 18:29 Last Admin: 07/02/18 17:01 Dose: 4 cap Admin: 07/02/18 11:17 Dose: 4 cap Admin: 07/02/18 07:53 Dose: 4 cap Admin: 07/01/18 19:37 Dose: Not Given Enoxaparin Sodium (Lovenox) 40 mg SQ Q24H THEA Stop: 07/31/18 20:59 Last Admin: 07/02/18 20:51 Dose: 40 mg Admin: 07/01/18 20:55 Dose: Not Given Admin: 07/01/18 19:24 Dose: 40 mg Heparin Sodium (Porcine) (Heparin Sod 100 Unit/Ml Flush) 5 ml IV PRN PRN PRN Reason: Flush Stop: 07/31/18 18:50 Last Admin: 07/02/18 06:33 Dose: 5 ml Potassium Chloride/Sodium Chloride (Normal Saline W/20 Meq Kcl) 20 meq in 1, 000 mls @ 100 mls/hr IV .Q10H [facility] Stop: 08/01/18 15:59 Last Admin: 07/03/18 01:40 Dose: 100 mls/hr Infusion: 07/03/18 01:40 Dose: 100 mls/hr Admin: 07/02/18 15:59 Dose: 100 mls/hr Prochlorperazine 10 mg/ (Syringe) 10 mls @ 5 mls/min IV Q6H PRN PRN Reason: Nausea And Vomiting Stop: 08/01/18 19:37 Last Admin: 07/02/18 19:57 Dose: 5 mls/min Levothyroxine Sodium (Synthroid) 100 mcg PO DAILYBB [facility] Stop: 08/01/18 06:29 Last Admin: 07/02/18 05:28 Dose: 100 mcg Morphine Sulfate (Morphine Sulfate) 2 mg IV Q4H PRN PRN Reason: Pain Stop: 07/16/18 22:47 Last Admin: 07/03/18 03:32 Dose: 2 mg Admin: 07/02/18 23:05 Dose: 2 mg Ondansetron HCl (Zofran) 4 mg IV Q6H PRN PRN Reason: Nausea Stop: 07/31/18 18:15 Last Admin: 07/02/18 16:15 Dose: 4 mg Admin: 07/01/18 19:28 Dose: 4 mg Pantoprazole Sodium (Protonix) 40 mg PO QAM THEA Stop: 08/01/18 08:59 Last Admin: 07/02/18 07:54 Dose: 40 mg Discontinued Medications Fentanyl Citrate (Fentanyl Citrate) 25 mcg IV Q15M PRN PRN Reason: Pain Stop: 07/15/18 10:36 Last Admin: 07/01/18 12:52 Dose: 25 mcg Admin: 07/01/18 11:00 Dose: 25 mcg Sodium Chloride (Nss 1000ml) 1,000 mls @ 200 mls/hr IV .Q5H THEA Stop: 07/31/18 10:44 Last Infusion: 07/01/18 18:49 Dose: 0 mls/hr Admin: 07/01/18 15:45 Dose: 200 mls/hr Infusion: 07/01/18 15:22 Dose: 0 mls/hr Admin: 07/01/18 11:06 Dose: 200 mls/hr Sodium Chloride (Nss 1000ml) 1,000 mls @ 999 mls/hr IV .Q1H1M THEA Stop: 07/01/18 11:45 Last Infusion: 07/01/18 11:05 Dose: 0 mls/hr Admin: 07/01/18 10:10 Dose: 999 mls/hr Potassium Chloride (K Edvin / Wtr) 10 meq in 100 mls @ 100 mls/hr IV Q1H THEA Stop: 07/01/18 14:29 Last Admin: 07/01/18 14:02 Dose: 100 mls/hr Infusion: 07/01/18 13:53 Dose: 0 mls/hr Admin: 07/01/18 12:53 Dose: 100 mls/hr Sodium Chloride (Nss 1000ml) 1,000 mls @ 125 mls/hr IV .Q8H THEA Stop: 07/02/18 10:29 Last Infusion: 07/02/18 11:06 Dose: 0 mls/hr Admin: 07/02/18 03:17 Dose: 125 mls/hr Infusion: 07/02/18 02:29 Dose: 125 mls/hr Admin: 07/01/18 18:29 Dose: 125 mls/hr Magnesium Sulfate/Dextrose (Magnesium Sulfate / D5w) 1 gm in 100 mls @ 100 mls/ hr IV Q1H THEA Stop: 07/01/18 20:29 Last Infusion: 07/01/18 22:04 Dose: 0 mls/hr Admin: 07/01/18 20:55 Dose: 100 mls/hr Infusion: 07/01/18 20:27 Dose: 100 mls/hr Admin: 07/01/18 19:27 Dose: 100 mls/hr Potassium Chloride (K Edvin / Wtr) 10 meq in 100 mls @ 100 mls/hr IV Q1H THEA Stop: 07/02/18 10:59 Last Infusion: 07/02/18 11:17 Dose: 0 mls/hr Admin: 07/02/18 10:15 Dose: 100 mls/hr Infusion: 07/02/18 10:13 Dose: 100 mls/hr Admin: 07/02/18 09:13 Dose: 100 mls/hr Potassium Phosphate 21 mmol/ (Sodium Chloride) 507 mls @ 145 mls/hr IV 1630 ONE Stop: 07/02/18 19:59 Last Infusion: 07/02/18 21:03 Dose: 0 mls/hr Infusion: 07/02/18 19:53 Dose: 0 mls/hr Admin: 07/02/18 16:46 Dose: 145 mls/hr Ioversol (Optiray 320 125ml) 116 ml IV ONCE PRN PRN Reason: Interaction Checking Stop: 07/05/18 11:20 Last Admin: 07/01/18 11:22 Dose: 116 ml Ondansetron HCl (Zofran) 4 mg IV NOW STA Stop: 07/01/18 10:38 Last Admin: 07/01/18 11:00 Dose: 4 mg Potassium Chloride (Klor-Con Pwd) 60 meq PO ONE ONE Stop: 07/01/18 18:31 Last Admin: 07/01/18 19:25 Dose: 60 meq Potassium Chloride (Klor-Con M10) 20 meq PO NOW STA Stop: 07/02/18 07:48 Last Admin: 07/02/18 09:13 Dose: 20 meq Potassium Chloride (Klor-Con M10) 20 meq PO NOW STA Stop: 07/02/18 15:10 Last Admin: 07/02/18 15:58 Dose: 20 meq Potassium Chloride (Klor-Con M10) 20 meq PO NOW STA Stop: 07/02/18 15:46 Last Admin: 07/02/18 16:46 Dose: 20 meq Medical Decision Making Differential Diagnosis Differential diagnosis: Etiologies such as gastroenteritis, food borne illness, infections, appendicitis , diverticulitis, inflammatory bowel disease, obstruction, GI bleed, biliary pathology, cardiac process, intracranial process, as well as others were entertained. Medical Records Attestation: I reviewed the patient's medical records. Home Medications Current Medication List: was personally reviewed by me Laboratory Data Attestation: I reviewed the patient's lab results. Result diagrams: 07/02/18 05:42 07/02/18 13:17 Lab Results 07/01/18 07/01/18 07/01/18 Range/Units 10:05 10:05 11:11 WBC 4.20 L (4.8-10.8) K/uL RBC 3.06 L (4.2-5.4) M/uL Hgb 9.1 L (12.0-16.0) g/dL Hct 27.3 L (37-47) % MCV 89.2 (80-100) fL MCH 29.7 (25-34) pg MCHC 33.3 (32-36) g/dL RDW Std Deviation 43.5 (36.4-46.3) fL RDW Coeff of Maria Fernanda 13.5 (11.5-14.5) % Plt Count 114 L (130-400) K/uL MPV 10.2 (7.4-10.4) fL Immature Gran % (Auto) 1.4 % Neut % (Auto) 91.0 % Lymph % (Auto) 6.2 % [place] % (Auto) 0.0 % Eos % (Auto) 1.4 % Baso % (Auto) 0.0 % Immature Gran # (Auto) 0.06 H (0.00-0.02) K/uL Neut # (Auto) 3.82 (1.4-6.5) K/uL Lymph # (Auto) 0.26 L (1.2-3.4) K/uL [place] # (Auto) 0.00 L (0.11-0.59) K/uL Eos # (Auto) 0.06 (0-0.5) K/uL Baso # (Auto) 0.00 (0-0.2) K/uL Neutrophils % (Manual) % Lymphocytes % (Manual) % Eosinophils % (Manual) % Neutrophils # (Manual) (1.4-6.5) K/uL Total Absolute Neuts (1.4-6.5) K/uL Lymphocytes # (Manual) (1.2-3.4) K/uL Total Abs Lymphocytes (1.2-3.4) K/uL Eosinophils # (Manual) (0-0.5) K/uL Dohle Bodies PT (9.0-12.0) Seconds INR (0.9-1.1) Sodium 132 L (136-145) mmol/L Potassium 2.9 L (3.5-5.1) mmol/L Chloride 96 L (98-107) mmol/L Carbon Dioxide 28 (21-32) mmol/L Anion Gap 8.0 (3-11) BUN 23 H (7-18) mg/dl Creatinine 1.34 H (0.6-1.2) mg/dl Est Cr Clr Drug Dosing Not Reportable Est GFR ( Amer) 47.4 Est GFR (Non-Af Amer) 40.9 BUN/Creatinine Ratio 16.8 (10-20) Glucose 163 H (70-99) mg/dl POC Lactic Acid Oliver 1.75 H (0.90-1.70) mmol/L Calcium 8.3 L (8.5-10.1) mg/dl Phosphorus (2.5-4.9) mg/dl Magnesium (1.8-2.4) mg/dl Total Bilirubin 1.1 H (0.2-1) mg/dl AST 27 (15-37) U/L ALT 30 (12-78) U/L Alkaline Phosphatase 94 (45-117) U/L Troponin I < 0.015 (0-0.045) ng/ml Total Protein 6.3 L (6.4-8.2) gm/dl Albumin 2.2 L (3.4-5.0) gm/dl Globulin 4.1 H (2.5-4.0) gm/dl Albumin/Globulin Ratio 0.5 L (0.9-2) Lipase 31 L (73-393) U/L TSH (0.300-4.500) uIu/ml Urine Color Urine Appearance (Clear) Urine pH (4.5-7.5) Ur Specific Mcgrath (1.000-1.030) Urine Protein (Negative) Urine Glucose (UA) (Negative) Urine Ketones (Negative) Urine Blood (Negative) Urine Nitrite (Negative) Urine Bilirubin (Negative) Urine Urobilinogen (Negative) Ur Leukocyte Esterase (Negative) Urine WBC (Auto) (0-5) /hpf Urine RBC (Auto) (0-4) /hpf U Hyaline Cast (Auto) (0-5) /lpf U Epithel Cells (Auto) (0-5) /lpf Urine Bacteria (Auto) (Negative) Stool Occult Bld Scrn (Negative) 07/01/18 07/01/18 07/01/18 Range/Units 15:57 18:47 18:47 WBC (4.8-10.8) K/uL RBC (4.2-5.4) M/uL Hgb (12.0-16.0) g/dL Hct (37-47) % MCV (80-100) fL MCH (25-34) pg MCHC (32-36) g/dL RDW Std Deviation (36.4-46.3) fL RDW Coeff of Maria Fernanda (11.5-14.5) % Plt Count (130-400) K/uL MPV (7.4-10.4) fL Immature Gran % (Auto) % Neut % (Auto) % Lymph % (Auto) % [place] % (Auto) % Eos % (Auto) % Baso % (Auto) % Immature Gran # (Auto) (0.00-0.02) K/uL Neut # (Auto) (1.4-6.5) K/uL Lymph # (Auto) (1.2-3.4) K/uL [place] # (Auto) (0.11-0.59) K/uL Eos # (Auto) (0-0.5) K/uL Baso # (Auto) (0-0.2) K/uL Neutrophils % (Manual) % Lymphocytes % (Manual) % Eosinophils % (Manual) % Neutrophils # (Manual) (1.4-6.5) K/uL Total Absolute Neuts (1.4-6.5) K/uL Lymphocytes # (Manual) (1.2-3.4) K/uL Total Abs Lymphocytes (1.2-3.4) K/uL Eosinophils # (Manual) (0-0.5) K/uL Dohle Bodies PT 13.1 H (9.0-12.0) Seconds INR 1.3 H (0.9-1.1) Sodium (136-145) mmol/L Potassium (3.5-5.1) mmol/L Chloride (98-107) mmol/L Carbon Dioxide (21-32) mmol/L Anion Gap (3-11) BUN (7-18) mg/dl Creatinine (0.6-1.2) mg/dl Est Cr Clr Drug Dosing Est GFR ( Amer) Est GFR (Non-Af Amer) BUN/Creatinine Ratio (10-20) Glucose (70-99) mg/dl POC Lactic Acid Oliver (0.90-1.70) mmol/L Calcium (8.5-10.1) mg/dl Phosphorus 2.3 L (2.5-4.9) mg/dl Magnesium (1.8-2.4) mg/dl Total Bilirubin (0.2-1) mg/dl AST (15-37) U/L ALT (12-78) U/L Alkaline Phosphatase (45-117) U/L Troponin I (0-0.045) ng/ml Total Protein (6.4-8.2) gm/dl Albumin (3.4-5.0) gm/dl Globulin (2.5-4.0) gm/dl Albumin/Globulin Ratio (0.9-2) Lipase (73-393) U/L TSH (0.300-4.500) uIu/ml Urine Color Yellow Urine Appearance Clear (Clear) Urine pH 5.5 (4.5-7.5) Ur Specific Mcgrath > 1.045 H (1.000-1.030) Urine Protein Trace H (Negative) Urine Glucose (UA) Negative (Negative) Urine Ketones Negative (Negative) Urine Blood Negative (Negative) Urine Nitrite Negative (Negative) Urine Bilirubin Negative (Negative) Urine Urobilinogen Negative (Negative) Ur Leukocyte Esterase Negative (Negative) Urine WBC (Auto) 5-10 H (0-5) /hpf Urine RBC (Auto) 0-4 (0-4) /hpf U Hyaline Cast (Auto) 1-5 (0-5) /lpf U Epithel Cells (Auto) >30 H (0-5) /lpf Urine Bacteria (Auto) Negative (Negative) Stool Occult Bld Scrn (Negative) 07/02/18 07/02/18 07/02/18 Range/Units 05:42 05:42 13:17 WBC 1.77 L (4.8-10.8) K/uL RBC 2.32 L (4.2-5.4) M/uL Hgb 7.1 L (12.0-16.0) g/dL Hct 21.1 L (37-47) % MCV 90.9 (80-100) fL MCH 30.6 (25-34) pg MCHC 33.6 (32-36) g/dL RDW Std Deviation 45.9 (36.4-46.3) fL RDW Coeff of Maria Fernanda 13.8 (11.5-14.5) % Plt Count 122 L (130-400) K/uL MPV 9.4 (7.4-10.4) fL Immature Gran % (Auto) % Neut % (Auto) % Lymph % (Auto) % [place] % (Auto) % Eos % (Auto) % Baso % (Auto) % Immature Gran # (Auto) (0.00-0.02) K/uL Neut # (Auto) (1.4-6.5) K/uL Lymph # (Auto) (1.2-3.4) K/uL [place] # (Auto) (0.11-0.59) K/uL Eos # (Auto) (0-0.5) K/uL Baso # (Auto) (0-0.2) K/uL Neutrophils % (Manual) 69.0 % Lymphocytes % (Manual) 24.8 % Eosinophils % (Manual) 6.2 % Neutrophils # (Manual) 1.22 L (1.4-6.5) K/uL Total Absolute Neuts 1.22 L (1.4-6.5) K/uL Lymphocytes # (Manual) 0.44 L (1.2-3.4) K/uL Total Abs Lymphocytes 0.44 L (1.2-3.4) K/uL Eosinophils # (Manual) 0.11 (0-0.5) K/uL Dohle Bodies 1+ PT (9.0-12.0) Seconds INR (0.9-1.1) Sodium 138 138 (136-145) mmol/L Potassium 2.9 L 3.2 L (3.5-5.1) mmol/L Chloride 105 106 (98-107) mmol/L Carbon Dioxide 26 26 (21-32) mmol/L Anion Gap 7.0 6.0 (3-11) BUN 15 14 (7-18) mg/dl Creatinine 0.85 D 0.80 (0.6-1.2) mg/dl Est Cr Clr Drug Dosing 58.6 62.2 Est GFR ( Amer) 82.2 88.4 Est GFR (Non-Af Amer) 70.9 76.3 BUN/Creatinine Ratio 18.0 17.4 (10-20) Glucose 101 H 135 H (70-99) mg/dl POC Lactic Acid Oliver (0.90-1.70) mmol/L Calcium 7.6 L 7.6 L (8.5-10.1) mg/dl Phosphorus (2.5-4.9) mg/dl Magnesium (1.8-2.4) mg/dl Total Bilirubin (0.2-1) mg/dl AST (15-37) U/L ALT (12-78) U/L Alkaline Phosphatase (45-117) U/L Troponin I (0-0.045) ng/ml Total Protein (6.4-8.2) gm/dl Albumin (3.4-5.0) gm/dl Globulin (2.5-4.0) gm/dl Albumin/Globulin Ratio (0.9-2) Lipase (73-393) U/L TSH (0.300-4.500) uIu/ml Urine Color Urine Appearance (Clear) Urine pH (4.5-7.5) Ur Specific Mcgrath (1.000-1.030) Urine Protein (Negative) Urine Glucose (UA) (Negative) Urine Ketones (Negative) Urine Blood (Negative) Urine Nitrite (Negative) Urine Bilirubin (Negative) Urine Urobilinogen (Negative) Ur Leukocyte Esterase (Negative) Urine WBC (Auto) (0-5) /hpf Urine RBC (Auto) (0-4) /hpf U Hyaline Cast (Auto) (0-5) /lpf U Epithel Cells (Auto) (0-5) /lpf Urine Bacteria (Auto) (Negative) Stool Occult Bld Scrn (Negative) 07/02/18 07/02/18 07/02/18 Range/Units 13:17 13:17 13:17 WBC (4.8-10.8) K/uL RBC (4.2-5.4) M/uL Hgb (12.0-16.0) g/dL Hct (37-47) % MCV (80-100) fL MCH (25-34) pg MCHC (32-36) g/dL RDW Std Deviation (36.4-46.3) fL RDW Coeff of Maria Fernanda (11.5-14.5) % Plt Count (130-400) K/uL MPV (7.4-10.4) fL Immature Gran % (Auto) % Neut % (Auto) % Lymph % (Auto) % [place] % (Auto) % Eos % (Auto) % Baso % (Auto) % Immature Gran # (Auto) (0.00-0.02) K/uL Neut # (Auto) (1.4-6.5) K/uL Lymph # (Auto) (1.2-3.4) K/uL [place] # (Auto) (0.11-0.59) K/uL Eos # (Auto) (0-0.5) K/uL Baso # (Auto) (0-0.2) K/uL Neutrophils % (Manual) % Lymphocytes % (Manual) % Eosinophils % (Manual) % Neutrophils # (Manual) (1.4-6.5) K/uL Total Absolute Neuts (1.4-6.5) K/uL Lymphocytes # (Manual) (1.2-3.4) K/uL Total Abs Lymphocytes (1.2-3.4) K/uL Eosinophils # (Manual) (0-0.5) K/uL Dohle Bodies PT (9.0-12.0) Seconds INR (0.9-1.1) Sodium (136-145) mmol/L Potassium (3.5-5.1) mmol/L Chloride (98-107) mmol/L Carbon Dioxide (21-32) mmol/L Anion Gap (3-11) BUN (7-18) mg/dl Creatinine (0.6-1.2) mg/dl Est Cr Clr Drug Dosing Est GFR ( Amer) Est GFR (Non-Af Amer) BUN/Creatinine Ratio (10-20) Glucose (70-99) mg/dl POC Lactic Acid Oliver (0.90-1.70) mmol/L Calcium (8.5-10.1) mg/dl Phosphorus 1.9 L (2.5-4.9) mg/dl Magnesium 1.9 (1.8-2.4) mg/dl Total Bilirubin (0.2-1) mg/dl AST (15-37) U/L ALT (12-78) U/L Alkaline Phosphatase (45-117) U/L Troponin I (0-0.045) ng/ml Total Protein (6.4-8.2) gm/dl Albumin (3.4-5.0) gm/dl Globulin (2.5-4.0) gm/dl Albumin/Globulin Ratio (0.9-2) Lipase (73-393) U/L TSH 3.450 (0.300-4.500) uIu/ml Urine Color Urine Appearance (Clear) Urine pH (4.5-7.5) Ur Specific Mcgrath (1.000-1.030) Urine Protein (Negative) Urine Glucose (UA) (Negative) Urine Ketones (Negative) Urine Blood (Negative) Urine Nitrite (Negative) Urine Bilirubin (Negative) Urine Urobilinogen (Negative) Ur Leukocyte Esterase (Negative) Urine WBC (Auto) (0-5) /hpf Urine RBC (Auto) (0-4) /hpf U Hyaline Cast (Auto) (0-5) /lpf U Epithel Cells (Auto) (0-5) /lpf Urine Bacteria (Auto) (Negative) Stool Occult Bld Scrn (Negative) 07/02/18 Range/Units Unknown WBC (4.8-10.8) K/uL RBC (4.2-5.4) M/uL Hgb (12.0-16.0) g/dL Hct (37-47) % MCV (80-100) fL MCH (25-34) pg MCHC (32-36) g/dL RDW Std Deviation (36.4-46.3) fL RDW Coeff of Maria Fernanda (11.5-14.5) % Plt Count (130-400) K/uL MPV (7.4-10.4) fL Immature Gran % (Auto) % Neut % (Auto) % Lymph % (Auto) % [place] % (Auto) % Eos % (Auto) % Baso % (Auto) % Immature Gran # (Auto) (0.00-0.02) K/uL Neut # (Auto) (1.4-6.5) K/uL Lymph # (Auto) (1.2-3.4) K/uL [place] # (Auto) (0.11-0.59) K/uL Eos # (Auto) (0-0.5) K/uL Baso # (Auto) (0-0.2) K/uL Neutrophils % (Manual) % Lymphocytes % (Manual) % Eosinophils % (Manual) % Neutrophils # (Manual) (1.4-6.5) K/uL Total Absolute Neuts (1.4-6.5) K/uL Lymphocytes # (Manual) (1.2-3.4) K/uL Total Abs Lymphocytes (1.2-3.4) K/uL Eosinophils # (Manual) (0-0.5) K/uL Dohle Bodies PT (9.0-12.0) Seconds INR (0.9-1.1) Sodium (136-145) mmol/L Potassium (3.5-5.1) mmol/L Chloride (98-107) mmol/L Carbon Dioxide (21-32) mmol/L Anion Gap (3-11) BUN (7-18) mg/dl Creatinine (0.6-1.2) mg/dl Est Cr Clr Drug Dosing Est GFR ( Amer) Est GFR (Non-Af Amer) BUN/Creatinine Ratio (10-20) Glucose (70-99) mg/dl POC Lactic Acid Oliver (0.90-1.70) mmol/L Calcium (8.5-10.1) mg/dl Phosphorus (2.5-4.9) mg/dl Magnesium (1.8-2.4) mg/dl Total Bilirubin (0.2-1) mg/dl AST (15-37) U/L ALT (12-78) U/L Alkaline Phosphatase (45-117) U/L Troponin I (0-0.045) ng/ml Total Protein (6.4-8.2) gm/dl Albumin (3.4-5.0) gm/dl Globulin (2.5-4.0) gm/dl Albumin/Globulin Ratio (0.9-2) Lipase (73-393) U/L TSH (0.300-4.500) uIu/ml Urine Color Urine Appearance (Clear) Urine pH (4.5-7.5) Ur Specific Mcgrath (1.000-1.030) Urine Protein (Negative) Urine Glucose (UA) (Negative) Urine Ketones (Negative) Urine Blood (Negative) Urine Nitrite (Negative) Urine Bilirubin (Negative) Urine Urobilinogen (Negative) Ur Leukocyte Esterase (Negative) Urine WBC (Auto) (0-5) /hpf Urine RBC (Auto) (0-4) /hpf U Hyaline Cast (Auto) (0-5) /lpf U Epithel Cells (Auto) (0-5) /lpf Urine Bacteria (Auto) (Negative) Stool Occult Bld Scrn Positive H (Negative) Imaging Data Radiologist's Impression: Radiology results as stated below per my review and the radiologist's interpretation: RIGHT LOWER EXTREMITY VENOUS DOPPLER CLINICAL HISTORY: Right lower extremity pain and swelling. COMPARISON STUDY: No previous studies for comparison. TECHNIQUE: Sonography of the deep venous system of the right lower extremity was performed. Compression and augmentation were evaluated. FINDINGS: The right common femoral, superficial femoral and popliteal veins were compressible. Augmentation was normal. Flow was shown within the deep calf vessels. IMPRESSION: No evidence of deep venous thrombus within the right lower extremity. Electronically signed by: Alex Brothers M.D. 07/01/2018 12:[address] OF THE ABDOMEN AND PELVIS WITH CONTRAST CLINICAL HISTORY: Abdominal pain and vomiting. Recent Whipple procedure. COMPARISON STUDY: CT of the abdomen and pelvis April 10, 2018. Chest CT April 24, 2018. TECHNIQUE: Following IV administration of 116 mL of [id number]-320, axial images of the abdomen and pelvis were obtained from the lung bases to the proximal femurs. Images were reviewed in the axial, sagittal, and coronal planes. IV contrast was administered without complication. Automated exposure control was utilized for the study. A dose lowering technique was utilized adhering to the principles of ALARA. CT DOSE: 400.54 mGy.cm FINDINGS: No pneumatosis, free air or portal venous gas is present. Fatty infiltration of the liver is noted. There are no suspicious hepatic lesions. A linear hypodensity within the inferior right hepatic lobe is likely postsurgical. The patient is status post Whipple procedure. There is no residual pancreatic or biliary ductal dilatation. The main, left and right portal veins are patent. There is minimal infiltration and trace fluid within the operative bed. There is no fluid collection is suggest an abscess. There is no evidence for a bowel obstruction. There is no lymphadenopathy. No omental/ peritoneal nodule is noted. No suspicious osseous lesions are present. There is moderate plaque of the abdominal aorta. Major vasculature is patent. There is no hydronephrosis. IMPRESSION: 1. Postoperative findings following recent Whipple procedure. Mild infiltration and trace fluid within the operative bed which is not unexpected. No abscess. No bowel obstruction. 1.6 cm linear hypodensity within the inferior right hepatic lobe which is likely postsurgical. 2. No evidence for residual/recurrent malignancy. 3. Fatty infiltration of the liver. Electronically signed by: Alex Brothers M.D. 07/01/2018 11:47 AM ECG Data Attestation: I personally reviewed and interpreted this ECG as follows: Indication: vomiting Rate (beats per minute): 93 Rhythm: sinus rhythm Findings: + other (QTc is 462, T wave abnormality to the inferior leads) and + PAC; no acute ischemic change Blood Pressure Blood Pressure Findings: Normal blood pressure MDM Narrative This patient was evaluated and appeared to be in no significant distress. IV access was obtained and laboratory work was drawn. The patient was placed on the lunchroom monitor and found to be in a normal sinus rhythm. She is noted to be hypotensive. Patient was hydrated with normal saline solution, given a 500 mL bolus with subsequent IV hydration. There was a second bolus given for persistent hypotension. Laboratory work reveals a mild hypokalemia. Ultrasound of the right lower extremity was performed and is negative for DVT. CT scan of the abdomen pelvis was performed and is consistent with post surgical change, no evidence of acute abnormality otherwise. The patient persisted with her hypotension despite 2 L of IV hydration. She was given 20 mEq of IV potassium for a potassium of 2.9. I do suspect this is related to her chemotherapy, however it is in her best interest to be hospitalized for further management. Patient and her are aware of the plan and agree. Impression & Plan Hypotension, Dehydration, Hypokalemia, Chemotherapy-induced nausea and vomiting Discharge Plan Visit Data *Final* Discharge Date/Time: 07/01/18 17:52 Chief Complaint: Vomiting Stated Complaint: NAUSEA,VOMITING SINCE SUNDAY ED Provider: Chey Lam Discharge Problem: Hypotension, Dehydration, Hypokalemia, Chemotherapy-induced nausea and vomiting Patient Disposition: Admitted As Inpatient Discharge Instructions Interventions: ED Discharge Assessment Last Done: 07/01/18 17:52 The scribe's documentation has been prepared under my direction and personally reviewed by me in its entirety. I confirm that the note above accurately reflects all work, treatment, procedures, and medical decision making performed by me.
[2018-07-02] MEDS: SODIUM CHLORIDE 0.9% 1000ML 1,000 ML IV SCH (03:17)
[2018-07-02] MEDS: LEVOTHYROXINE SODIUM 100 MCG TABLET PO SCH (05:28)
[2018-07-02 06:11] LABS: Hematocrit (blood only) 21.1 % (37-47); Hemoglobin 7.1 g/dL (12.0-16.0); Mean Corpuscular Hgb Conc 33.6 g/dL (32-36); Mean Corpuscular Volume 90.9 fL (80-100); Mean Platelet Volume 9.4 fL (7.4-10.4); Platelet Count 122 K/uL (130-400); RDW Coefficient of Variation 13.8 % (11.5-14.5); RDW Standard Deviation 45.9 fL (36.4-46.3); Red Blood Count 2.32 M/uL (4.2-5.4); White Blood Count 1.77 K/uL (4.8-10.8)
[2018-07-02 06:55] LABS: Calcium 7.6 mg/dl (8.5-10.1); Creatinine Clr Calc Pharmacy 58.6 ml/min; Est GFR (African American) 82.2; Est GFR (Non-African American) 70.9; Potassium 2.9 mmol/L (3.5-5.1)
[2018-07-02 07:26] LABS: ALC (manual) 0.44 K/uL (1.2-3.4); Dohle Bodies 1+; Eosinophils # (manual) 0.11 K/uL (0-0.5); Lymphocytes # (manual) 0.44 K/uL (1.2-3.4); Lymphocytes % (manual) 24.8 %
[2018-07-02] MEDS ORDERED: POTASSIUM CHLORIDE 10 MEQ TABCR PO STA ×3 (07:47→15:45)
[2018-07-02] MEDS ORDERED: POTASSIUM ACETATE 20 MEQ in 0.9 % SODIUM CHLORIDE 100 ML IV ONE (07:47)
[2018-07-02] MEDS: PANCREAZE (LIPASE 16,800U) CAP PO SCH ×3 (07:53→17:01)
[2018-07-02] MEDS: PANTOprazole 40 MG TAB PO SCH (07:54)
[2018-07-02] MEDS: POTASSIUM CHLORIDE / WTR 10 MEQ/100 ML PLCT IV SCH ×2 (09:13→10:15)
[2018-07-02 13:51] LABS: BUN Creatinine Ratio 17.4 (10-20); Calcium 7.6 mg/dl (8.5-10.1); Creatinine Clr Calc Pharmacy 62.2 ml/min; Est GFR (African American) 88.4; Est GFR (Non-African American) 76.3; Potassium 3.2 mmol/L (3.5-5.1)
--- NOTE | 2018-07-02 15:15 | Hospitalist Progress Note ---
Date of Service July 02, 2018 Assessment & Plan (1) Hypotension: (2) Hypokalemia: (3) Dehydration: (4) Nausea & vomiting: (5) Hypothyroid: (6) GERD (gastroesophageal reflux disease): (7) Pancreatic mass: 67-year-old female admitted on July 01, 2018 because of hypotensive secondary to diarrhea and vomiting History of pancreatic adenocarcinoma status post Whipple procedure performed 05/07/18 at [place], on adjuvant chemotherapy presenting with intractable nausea and vomiting, p.o. intolerance. Patient received chemotherapy on Sunday, . Hypotension upon admission likely because of volume depletion and dehydration, secondary to poor oral intake and diarrhea Improved, continue IV fluid, continue to hold blood pressure medicine Losartan Nursing staff report transient atrial tachycardia, will check electrolytes and continue monitoring Nausea & vomiting S/p chemotherapy, continue Zofran PRN, Compazine PRN GERD, hypothyroid: TSH, continue Synthroid, on a home medication, Cancer s/p whipple now on chemotherapy, Continue Creon Ppx - Lovenox, Protonix Code - Full per discussion with patient Increase activity as much as possible Subjective Reported nausea aeration and vomiting Continue watery diarrhea 2 times today Review of system, generalized weakness, No cough sputum no difficult breathing Denies chest pain palpitation or lower extremities warning Denies abdominal pain Denies dysuria urgency and frequency Denies skin rash Physical Exam 2 Vital Signs (Past 24 Hours): Last Vital Signs Temp 36.6 C 07/02/18 11:52 Pulse 86 07/02/18 11:52 Resp 18 07/02/18 11:52 BP 124/77 07/02/18 11:52 Pulse Ox 98 07/02/18 11:52 Physical Exam: General Appearance: Frail, looks tired, WD/WN, no apparent distress, Eyes: normal inspection, PERRL, EOMI, sclerae normal ENT: normal ENT inspection, hearing grossly normal, pharynx normal Neck: supple, no adenopathy, thyroid normal, no JVD, no carotid bruits, trachea midline Respiratory/Chest: Anterior chest wall has Mediport , chest non-tender, normal breath sounds, no respiratory distress, no accessory muscle use, breath sounds, rales, wheezing Cardiovascular: regular rate, rhythm, no JVD, no murmur Abdomen: normal bowel sounds, non tender, soft, no organomegaly, Extremities: normal range of motion, non-tender, normal inspection, no pedal edema, no calf tenderness, normal capillary refill , pelvis stable, Neurologic/Psychiatric: [employer] II-XII nml as tested, no motor/sensory deficits, alert, normal mood/affect, oriented x 3 Skin: normal color, warm/dry, no rash Lymphatic: no adenopathy Results & Data Laboratory Results Laboratory Results - last 24 hr 07/01/18 07/01/18 07/01/18 15:57 18:47 18:47 WBC RBC Hgb Hct MCV MCH MCHC RDW Std Deviation RDW Coeff of Maria Fernanda Plt Count MPV Neutrophils % (Manual) Lymphocytes % (Manual) Eosinophils % (Manual) Neutrophils # (Manual) Total Absolute Neuts Lymphocytes # (Manual) Total Abs Lymphocytes Eosinophils # (Manual) Dohle Bodies PT 13.1 H INR 1.3 H Sodium Potassium Chloride Carbon Dioxide Anion Gap BUN Creatinine Est Cr Clr Drug Dosing Est GFR ( Amer) Est GFR (Non-Af Amer) BUN/Creatinine Ratio Glucose Calcium Phosphorus 2.3 L Urine Color Yellow Urine Appearance Clear Urine pH 5.5 Ur Specific [place] > 1.045 H Urine Protein Trace H Urine Glucose (UA) Negative Urine Ketones Negative Urine Blood Negative Urine Nitrite Negative Urine Bilirubin Negative Urine Urobilinogen Negative Ur Leukocyte Esterase Negative Urine WBC (Auto) 5-10 H Urine RBC (Auto) 0-4 U Hyaline Cast (Auto) 1-5 U Epithel Cells (Auto) >30 H Urine Bacteria (Auto) Negative 07/02/18 07/02/18 07/02/18 05:42 05:42 13:17 WBC 1.77 L RBC 2.32 L Hgb 7.1 L Hct 21.1 L MCV 90.9 MCH 30.6 MCHC 33.6 RDW Std Deviation 45.9 RDW Coeff of Maria Fernanda 13.8 Plt Count 122 L MPV 9.4 Neutrophils % (Manual) 69.0 Lymphocytes % (Manual) 24.8 Eosinophils % (Manual) 6.2 Neutrophils # (Manual) 1.22 L Total Absolute Neuts 1.22 L Lymphocytes # (Manual) 0.44 L Total Abs Lymphocytes 0.44 L Eosinophils # (Manual) 0.11 Dohle Bodies 1+ PT INR Sodium 138 138 Potassium 2.9 L 3.2 L Chloride 105 106 Carbon Dioxide 26 26 Anion Gap 7.0 6.0 BUN 15 14 Creatinine 0.85 D 0.80 Est Cr Clr Drug Dosing 58.6 62.2 Est GFR ( Amer) 82.2 88.4 Est GFR (Non-Af Amer) 70.9 76.3 BUN/Creatinine Ratio 18.0 17.4 Glucose 101 H 135 H Calcium 7.6 L 7.6 L Phosphorus Urine Color Urine Appearance Urine pH Ur Specific [place] Urine Protein Urine Glucose (UA) Urine Ketones Urine Blood Urine Nitrite Urine Bilirubin Urine Urobilinogen Ur Leukocyte Esterase Urine WBC (Auto) Urine RBC (Auto) U Hyaline Cast (Auto) U Epithel Cells (Auto) Urine Bacteria (Auto) _ (1) Hypotension Hypotension type: other hypotension type Trimester: Qualified Code(s): I95.89 - Other hypotension (2) Nausea & vomiting Vomiting type: unspecified Vomiting Intractability: intractable Qualified Code(s): R11.2 - Nausea with vomiting, unspecified (3) Hypothyroid Hypothyroidism type: unspecified Qualified Code(s): E03.9 - Hypothyroidism, unspecified (4) GERD (gastroesophageal reflux disease) Esophagitis presence: esophagitis presence not specified Qualified Code(s): K21.9 - Gastro-esophageal reflux disease without esophagitis
[2018-07-02] MEDS ORDERED: POTASSIUM PHOS 3 MMOL/1 ML INFUSION IV STA (15:45)
[2018-07-02] MEDS: NSS + 20MEQ KCL 20 MEQ/1,000 ML BAG IV SCH (15:59)
[2018-07-02] MEDS: ONDANSETRON INJ 2 MG/ML 2 ML VIAL IV PRN (16:15)
[2018-07-02] MEDS ORDERED: POTASSIUM PHOSPHATE 21 MMOL in SODIUM CHLORIDE 0.9% 500 ML IV ONE (16:30)
[2018-07-02] MEDS ORDERED: ACETAMINOPHEN 1000 MG/100 ML IV IV PRN (19:32)
[2018-07-02] MEDS: PROCHLORPERAZINE 10 MG in SYRINGE 8 ML IV PRN (19:57)
[2018-07-02] MEDS: ENOXAPARIN INJ 40 MG/0.4 ML SYR SQ SCH (20:51)
[2018-07-02] MEDS: MoRPHine SULFATE 2 MG/ML CARP IV PRN (23:05)
[2018-07-03] MEDS: NSS + 20MEQ KCL 20 MEQ/1,000 ML BAG IV SCH ×2 (01:40→11:37)
[2018-07-03] MEDS: MoRPHine SULFATE 2 MG/ML CARP IV PRN ×6 (03:32→19:57)
[2018-07-03] MEDS: LEVOTHYROXINE SODIUM 100 MCG TABLET PO SCH (06:11)
[2018-07-03 06:48] LABS: Calcium 7.7 mg/dl (8.5-10.1); Creatinine Clr Calc Pharmacy 75.6 ml/min; Est GFR (African American) 105.9; Est GFR (Non-African American) 91.4; Potassium 3.9 mmol/L (3.5-5.1)
[2018-07-03 06:51] LABS: Hematocrit (blood only) 23.1 % (37-47); Hemoglobin 7.6 g/dL (12.0-16.0); Mean Corpuscular Hgb Conc 32.9 g/dL (32-36); Mean Platelet Volume 9.4 fL (7.4-10.4); Platelet Count 131 K/uL (130-400); RDW Coefficient of Variation 13.9 % (11.5-14.5); RDW Standard Deviation 45.9 fL (36.4-46.3); Red Blood Count 2.51 M/uL (4.2-5.4); White Blood Count 1.15 K/uL (4.8-10.8)
[2018-07-03 07:00] LABS: RBC Morphology Unremarkable
[2018-07-03 07:11] LABS: ALC (manual) 0.52 K/uL (1.2-3.4); Eosinophils # (manual) 0.04 K/uL (0-0.5); Lymphocytes # (manual) 0.52 K/uL (1.2-3.4); Lymphocytes % (manual) 45.6 %; Monocytes # (manual) 0.02 K/uL (0.11-0.59); Monocytes % (manual) 1.8 %; Neutrophils % (manual) 49.1 %
[2018-07-03] MEDS: PANCREAZE (LIPASE 16,800U) CAP PO SCH ×4 (07:42→17:31)
[2018-07-03] MEDS: PANTOprazole 40 MG TAB PO SCH (07:42)
[2018-07-03] MEDS: ONDANSETRON INJ 2 MG/ML 2 ML VIAL IV PRN (08:31)
--- NOTE | 2018-07-03 12:49 | Hospitalist Progress Note ---
Date of Service July 03, 2018 Assessment & Plan (1) Hypotension: Blood pressure 77/54 on arrival, improved with IVF. Blood pressure presently 103/62. Most likely secondary to volume depletion in setting of GI losses, nausea/vomiting and poor PO intake. SIRS negative, H/H stable. * Continue maintenance fluids and electrolyte repletion * Hold Losartan * Monitor blood pressure * (2) Hypokalemia: K=2.9. Patient was given 10mEq in the ER. * Will administer 60MEq KCl x 1 * Magnesium x 2 gm * Repeat labs in AM * (3) Dehydration: In setting of GI losses and poor PO intake * NSS at 125mL/hr x 2 liters * Electrolyte repletion * Repeat labs in AM * (4) Nausea & vomiting: S/p chemotherapy. * Zofran PRN * Compazine PRN * (5) Hypothyroid: Chronic. * Continue Synthroid * (6) GERD (gastroesophageal reflux disease): Chronic * Protonix 40mg po q daily * (7) Pancreatic mass: 67-year-old female admitted on July 01, 2018 because of hypotensive secondary to diarrhea and vomiting History of pancreatic adenocarcinoma status post Whipple procedure performed 05/07/18 at [place], on adjuvant chemotherapy presenting with intractable nausea and vomiting, p.o. intolerance. Patient received chemotherapy on Sunday, . Hypotension upon admission likely because of volume depletion and dehydration, secondary to poor oral intake and diarrhea Improved, continue IV fluid, continue to hold blood pressure medicine Losartan Nursing staff report transient atrial tachycardia, will check electrolytes and continue monitoring Nausea & vomiting S/p chemotherapy, continue Zofran PRN, Compazine PRN GERD, hypothyroid: TSH, continue Synthroid, on a home medication, Cancer s/p whipple now on chemotherapy, Continue Creon Ppx - Lovenox, Protonix Code - Full per discussion with patient Increase activity as much as possible Subjective Lower lips and oral mucosa has different stage blisters, no groin pain, reported epigastric pain, has been on clear liquid diet Review of system, generalized weakness, No cough sputum no difficult breathing Denies chest pain palpitation or lower extremities warning Denies abdominal pain Denies dysuria urgency and frequency Denies skin rash Physical Exam 2 Vital Signs (Past 24 Hours): Last Vital Signs Temp 36.4 C L 01/02/19 11:36 Pulse 83 07/03/18 11:36 Resp 18 07/03/18 11:36 BP 150/80 H 07/03/18 09:56 Pulse Ox 98 07/03/18 11:36 Physical Exam: General Appearance: Frail, looks tired, WD/WN, no apparent distress, Eyes: normal inspection, PERRL, EOMI, sclerae normal ENT: normal ENT inspection, hearing grossly normal, pharynx normal Neck: supple, no adenopathy, thyroid normal, no JVD, no carotid bruits, trachea midline Respiratory/Chest: Anterior chest wall has Mediport , chest non-tender, normal breath sounds, no respiratory distress, no accessory muscle use, breath sounds, rales, wheezing Cardiovascular: regular rate, rhythm, no JVD, no murmur Abdomen: normal bowel sounds, non tender, soft, no organomegaly, Extremities: normal range of motion, non-tender, normal inspection, no pedal edema, no calf tenderness, normal capillary refill , pelvis stable, Neurologic/Psychiatric: retort unloader II-XII nml as tested, no motor/sensory deficits, alert, normal mood/affect, oriented x 3 Skin: normal color, warm/dry, no rash Lymphatic: no adenopathy _ (1) Hypotension Hypotension type: other hypotension type Trimester: Qualified Code(s): I95.89 - Other hypotension (2) Nausea & vomiting Vomiting type: unspecified Vomiting Intractability: intractable Qualified Code(s): R11.2 - Nausea with vomiting, unspecified (3) Hypothyroid Hypothyroidism type: unspecified Qualified Code(s): E03.9 - Hypothyroidism, unspecified (4) GERD (gastroesophageal reflux disease) Esophagitis presence: esophagitis presence not specified Qualified Code(s): K21.9 - Gastro-esophageal reflux disease without esophagitis
--- NOTE | 2018-07-03 12:59 | XRay Report ---
[facility] CLINICAL HISTORY: evaluate for constipation COMPARISON STUDY: CT of the abdomen and pelvis July 01, 2018. FINDINGS: Right abdominal surgical clips are noted. The bowel pattern is normal. A moderate amount of stool within the colon and rectum. IMPRESSION: 1. No evidence for a bowel obstruction. 2. Moderate amount of stool within the colon and rectum. Electronically signed by: Alex Brothers M.D. 07/03/2018 12:57 PM
[2018-07-03] MEDS: ACYCLOVIR 5% OINT 15 GM TUBE EXT SCH ×3 (13:36→18:57)
[2018-07-03] MEDS ORDERED: ACYCLOVIR 400 MG TAB PO SCH (14:00)
--- NOTE | 2018-07-03 14:07 | Gastrointestinal Consultation ---
Date of Consultation July 03, 2018 Assessment & Plan (1) Nausea & vomiting: check repeat CT today to look for ischemic bowel. Check CBC, CMP, lactic acid and lipase also epigatric pain as above anemia--follow H and H for now. No evidece of brisk GI bleeding--just heme pos brown heme pos--can be heme pos from excess vomiting ---PPI IV bid diarrhea--none at present--if recurrent check Cdiff neutropenia--likely from chemo--oncology consult to address elevated lactic acid--repeat as above. I am going off service today at [address] Flynn is assuming GI care then. History of Present Illness Reason for Consultation: acute on chronic anemia Attending Physician: Raymond Olivas MD, PhD, [facility] History of Present Illness cc n/v, abd pain HPI with patient for H and P. Pt seen by me in 04/2018 during hospitalization for new jaundice and diarrhea. She was diagnosed with pancreas adenoca by [facility]NA duriing EUS and had ERCP with biliary stent placement. She had Whipple at [facility] 05/2018. She has had 3 cycles of chemo. According to patient her epigastric abd pain has worsened since starting chemo and with each chemo. She normally has n/v with chemo which imporves over serveral days. No blood in the vomitus. However this time after chemo 06/28 she has continued n/v not tolerating po and diarrhea. Diarrhea resolved with Imodium and no diarrhea until admit. She states 2-3 stools yesterday but none today. She states stools are dark brown. Stool yesterday heme positive. Hgb on 06/27 9.5 then on admit 9.1 then 7.1 then today 7.6 . WBC is dropping. lactic acid on admit mildly elevated 1.75. WBC is dropping. She states nausea was a little better this am but is nauseated now. Abd pain 10/10 when morphine wears off and no improvement since admit. CT a/p on admit s/p whipple. KUB today moderate stool in the colon. She was also having some leg pain and extreme weakness. Allergies Allergy/AdvReac Type Severity Reaction Status Date / Time naltrexone Allergy Vomiting Verified 07/01/18 10:25 Home Medications Home Medications Medication Instructions Recorded Confirmed Type capecitabine 1,500 mg PO BID PRN 07/01/18 07/01/18 History lansoprazole [Prevacid] 30 mg PO DAILY 07/01/18 07/01/18 History levothyroxine 100 mcg PO DAILY 07/01/18 07/01/18 History rhjvig-gvqhbhfa-qtfxhjk [Creon] 1 cap PO DIRECTED 07/01/18 07/01/18 History glckab-vpznubqj-yaovtzq [Creon] 2 cap PO WM 07/01/18 07/01/18 History loperamide [Imodium A-D] 2 mg PO DIRECTED PRN 07/01/18 07/01/18 History losartan 100 mg PO DAILY 07/01/18 07/01/18 History ondansetron HCl [Zofran] 8 mg PO DAILY PRN 07/01/18 07/01/18 History Patient History Family History Other Cancer Diabetes Social History marital status: Current Living Situation: Spouse and Family current occupational status: retired Other Information That Helps Us Care for You: No Feels Safe at Home: Yes Safety Concerns: Feels Safe At This Time Smoking Status: Former smoker Do You Dip or Chew Tobacco: No Second Hand Exposure: No Tobacco Cessation Education Requested by Patient: No Hx Alcohol Use: No Hx Substance Use: No Beliefs That Will Affect Care: None Communication Ability: Effective Review of Systems see HPI. Otherwise 10 ROS negatie. Physical Exam 2 Vital Signs (Past 24 Hours): Last Vital Signs Temp 36.4 C L 07/03/18 11:36 Pulse 83 07/03/18 11:36 Resp 18 07/03/18 11:36 BP 141/76 H 07/03/18 12:00 Pulse Ox 98 07/03/18 11:36 Constitutional: + ill appearing Eyes: PERRL, conjunctivae normal, anicteric sclerae ENMT: external ear and nose normal, oropharynx normal Neck: normal visual inspection Respiratory: normal respiratory effort, lungs clear to auscultation Cardiovascular: Heart Sounds: no murmur Gastrointestinal (Abdomen): pos bs, soft, no guarding nor rebound, Neurologic: PERRL, EOMI, accommodation nl, no face palsy, no dysarthria Psychiatric: A+Ox3, euthymic affect _ (1) Nausea & vomiting Vomiting type: unspecified Vomiting Intractability: intractable Qualified Code(s): R11.2 - Nausea with vomiting, unspecified
[2018-07-03] MEDS ORDERED: PANTOprazole 40 MG in SYRINGE 0 ML IV SCH (14:15)
[2018-07-03 14:27] LABS: Albumin Level 1.9 gm/dl (3.4-5.0); BUN Creatinine Ratio 10.1 (10-20); Calcium 7.9 mg/dl (8.5-10.1); Est GFR (Non-African American) 92.3
[2018-07-03 14:28] LABS: Hematocrit (blood only) 24.1 % (37-47); Hemoglobin 8.1 g/dL (12.0-16.0); Mean Corpuscular Hgb Conc 33.6 g/dL (32-36); Mean Corpuscular Volume 91.3 fL (80-100); Mean Platelet Volume 9.1 fL (7.4-10.4); Platelet Count 131 K/uL (130-400); RDW Coefficient of Variation 13.8 % (11.5-14.5); Red Blood Count 2.64 M/uL (4.2-5.4)
[2018-07-03 14:31] LABS: Albumin Globulin Ratio 0.5 (0.9-2); Bilirubin,Total 0.5 mg/dl (0.2-1); Globulin 3.8 gm/dl (2.5-4.0); Total Protein 5.7 gm/dl (6.4-8.2)
--- NOTE | 2018-07-03 14:41 | CT Scan Report ---
CT SCAN OF THE ABDOMEN AND PELVIS WITHOUT IV CONTRAST CLINICAL HISTORY: Epigastric abdominal pain. Nausea and vomiting. COMPARISON STUDY: Abdominal CT dated 07/01/2018. TECHNIQUE: CT scan of the abdomen and pelvis is performed from the lung bases to the proximal femora. Images are reviewed in the axial, sagittal, and coronal planes. IV contrast was not administered for this examination as per the referring clinician. Note that the examination is suboptimal without IV contrast. A dose lowering technique was utilized adhering to the principles of ALARA. CT DOSE: 409.05 mGy.cm FINDINGS: Lung bases: The heart is normal in size and without pericardial effusion. There are small pleural eff usions with associated atelectasis. Liver: The unenhanced liver is normal in size, contour, and attenuation. There is no intrahepatic vida iary ductal dilatation. There is minimal pneumobilia in the left hepatic lobe. Gallbladder: Surgically absent noting clips in the gallbladder fossa. Spleen: Normal in size and attenuation. Pancreas: The pancreatic head is surgically absent. The pancreas body and tail are markedly atrophic. The pancreatic duct is normal as imaged, and without significant dilatation. Adrenal glands: Unremarkable. Kidneys: The unenhanced kidneys demonstrate cortical atrophy and are without hydronephrosis. There ar e no renal calculi identified. There is no evidence of contour deforming renal mass lesion. Abdominal vasculature: The abdominal aorta is normal in course and caliber noting advanced atheroscle rotic calcification. Stomach and bowel: There are postoperative changes from gastroduodenal resection and gastrojejunostom y consistent with the history of Whipple procedure. There are thick walled loops of small bowel ident ified in the mid to lower abdomen with associated interloop fluid and mesenteric edema. No pneumatosi s intestinalis or portal venous gas is seen. There is fecalization of small bowel loops in the pelvis . The appendix is not identified and reported surgically absent. Peritoneum: A midline surgical scar is noted. No bowel obstruction is identified. There is a small vo lume of abdominopelvic ascites, which has increased from 07/01/2018. No intraperitoneal free air is s een. Lymphadenopathy: None. Pelvic viscera: The bladder is normal as imaged. The uterus is surgically absent. No adnexal lesion i s identified. Skeletal structures: The skeletal structures are osteopenic. Mild lumbosacral spondylosis is observed . Sclerotic change is noted in the sacroiliac joints. No lytic or blastic lesions are seen. IMPRESSION: 1. There are numerous loops of thick walled and edematous small bowel identified in the lower abdomen and pelvis with associated interloop fluid and surrounding inflammatory change. The appearance is co nsistent with a nonspecific enteritis. This could be on an infectious, inflammatory, and/or ischemic basis. This represents a change from 07/01/2018, and clinical correlation will be essential. 2. There is a small volume of abdominopelvic ascites, which has increased from 07/01/2018. 3. No intraperitoneal free air, pneumatosis intestinalis, or portal venous gas is seen. 4. Small pleural effusions. These are new from 07/01/2018. 5. Again seen are postoperative changes consistent with a Whipple procedure. No bowel obstruction is identified. 6. Additional findings as above. Electronically signed by: Ousmane Akers M.D. 07/03/2018 2:40 PM
[2018-07-03] MEDS: PROCHLORPERAZINE 10 MG in SYRINGE 8 ML IV PRN (14:53)
[2018-07-03 14:54] LABS: Dohle Bodies 1+; Eosinophils # (auto) 0.01 K/uL (0-0.5); Lymphocytes # (auto) 0.35 K/uL (1.2-3.4); Monocytes # (auto) 0.01 K/uL (0.11-0.59); Neutrophils # (auto) 0.63 K/uL (1.4-6.5); Toxic Granulation 1+
--- NOTE | 2018-07-03 16:41 | Discharge Summary ---
Date of Service July 03, 2018 Admission HPI Per Admitting Provider Patient is a 67-year-old female with history of pancreatic adenocarcinoma status post Whipple procedure performed 05/07/18 at [place], on adjuvant chemotherapy presenting with intractable nausea and vomiting, p.o. intolerance. Patient received chemotherapy on 06/28/18. States that since then she has had 4-5 episodes of nonbloody/nonbilious vomiting daily. Unable to tolerate p.o. or keep water down. Patient also reports weakness, dizziness, decreased urine output. Patient states that she typically has mild nausea associated with receiving chemo which resolves in 2 days. Reports that this nausea is more severe and longer lasting than prior episodes. No additional complaints. Upon arrival to the ER patient was found to be mildly hypotensive. She was administered 2 L of normal saline with improvement in blood pressure ER course: Fentanyl, Zofran, KCl 10 mEq, normal saline times 2 L Principal Diagnosis Ischemic bowel disease Discharge Data Allergies Allergy/AdvReac Type Severity Reaction Status Date / Time naltrexone Allergy Vomiting Verified 07/01/18 10:25 Consultations 07/02/18 15:58 Consult Gastroenterology Routine 07/03/18 14:08 Consult Oncology Routine 07/03/18 15:07 Consult General Surgery Stat 07/01/18 15:36 ED Decision to Admit Stat Ordered Studies 07/03/18 13:51 CT abd pelvis wo con Stat 07/01/18 10:37 CT abd pelvis IV con only Stat 07/01/18 11:21 US venous doppler LE RT Stat Hospital Course (1) Hypotension: (2) Hypokalemia: (3) Dehydration: (4) Nausea & vomiting: (5) Hypothyroid: (6) GERD (gastroesophageal reflux disease): (7) Pancreatic mass: 67-year-old female admitted on July 01, 2018 because of hypotensive secondary to diarrhea and vomiting History of pancreatic adenocarcinoma status post Whipple procedure performed 05/07/18 at [place], on adjuvant chemotherapy presenting with intractable nausea and vomiting, p.o. intolerance. Patient received chemotherapy on Sunday, . Hypotension upon admission likely because of volume depletion and dehydration, secondary to poor oral intake and diarrhea Improved, continue IV fluid, continue to hold blood pressure medicine Losartan Nursing staff report transient atrial tachycardia yesterday, checked electrolytes and continue monitoring, continue hemodynamically stable, Nausea & vomiting S/p chemotherapy, continue Zofran PRN, Compazine PRN Pancytopenic today, with ANC around 500, neutropenic precaution started Anemia stable thrombocytopenia improved Lips blister, possible herpes infection S/P chemotherapy, acyclovir started GERD, hypothyroid: TSH, continue Synthroid, on a home medication, Cancer s/p whipple now on chemotherapy, Continue Creon Reported epigastric pain, has been on clear liquid diet, GI did abdominal CT w/ o contrast, which shows possible ischemic bowel disease, GI to talk to surgeon an dme, and surgeon talked to me,, transferring to [facility], therefore transferring started. Discussed with patient and her in bedside, discussed risk and benefit and options of the care, patient agreed to be transferred to [facility], accepting physician is Dr. Jm Kingx - Lovenox, Protonix Code - Full per discussion with patient Upon transferring today, Lower lips and oral mucosa has different stage blisters , acyclovir p.o. has started reported epigastric pain, has been on clear liquid diet, GI did abdominal CT w/ o contrast, which shows possible ischemic bowel disease, therefore transferring started Abdominal pain is mild pain, 3-4 out of 10, which is new, morphine help, denies nausea vomiting, denies blood in the stool, generally feeling tired Review of system, generalized weakness, No cough sputum no difficult breathing Denies chest pain palpitation or lower extremities warning Denies abdominal pain Denies dysuria urgency and frequency Denies skin rash Physical exam upon discharge today General Appearance: Frail, looks tired, WD/WN, no apparent distress, Eyes: normal inspection, PERRL, EOMI, sclerae normal ENT: normal ENT inspection, hearing grossly normal, pharynx normal Neck: supple, no adenopathy, thyroid normal, no JVD, no carotid bruits, trachea midline Respiratory/Chest: Anterior chest wall has Mediport , chest non-tender, normal breath sounds, no respiratory distress, no accessory muscle use, breath sounds, rales, wheezing Cardiovascular: regular rate, rhythm, no JVD, no murmur Abdomen: mild tender, soft, mild distention, no organomegaly, Extremities: normal range of motion, non-tender, normal inspection, no pedal edema, no calf tenderness, normal capillary refill , pelvis stable, Neurologic/Psychiatric: polysomnograph tech II-XII nml as tested, no motor/sensory deficits, alert, normal mood/affect, oriented x 3 Skin: normal color, warm/dry, no rash Lymphatic: no adenopathy Lab data as upon discharge: Laboratory Results - last 24 hr 07/03/18 07/03/18 07/03/18 06:03 06:03 14:02 WBC 1.15 L 1.00 L RBC 2.51 L 2.64 L Hgb 7.6 L 8.1 L Hct 23.1 L 24.1 L MCV 92.0 91.3 MCH 30.3 30.7 MCHC 32.9 33.6 RDW Std Deviation 45.9 46.0 RDW Coeff of Maria Fernanda 13.9 13.8 Plt Count 131 131 MPV 9.4 9.1 Immature Gran % (Auto) 0.0 Neut % (Auto) 63.0 Lymph % (Auto) 35.0 Perry % (Auto) 1.0 Eos % (Auto) 1.0 Baso % (Auto) 0.0 Immature Gran # (Auto) 0.00 Neut # (Auto) 0.63 L* Lymph # (Auto) 0.35 L Perry # (Auto) 0.01 L Eos # (Auto) 0.01 Baso # (Auto) 0.00 Neutrophils % (Manual) 49.1 Lymphocytes % (Manual) 45.6 Monocytes % (Manual) 1.8 Eosinophils % (Manual) 3.5 Neutrophils # (Manual) 0.56 L Total Absolute Neuts 0.56 L* Lymphocytes # (Manual) 0.52 L Total Abs Lymphocytes 0.52 L Monocytes # (Manual) 0.02 L Eosinophils # (Manual) 0.04 Toxic Granulation 1+ Dohle Bodies 1+ RBC Morphology Unremarkable Sodium 139 Potassium 3.9 D Chloride 109 H Carbon Dioxide 25 Anion Gap 5.0 BUN 9 D Creatinine 0.66 Est Cr Clr Drug Dosing 75.6 Est GFR ( Amer) 105.9 Est GFR (Non-Af Amer) 91.4 BUN/Creatinine Ratio 13.0 Glucose 104 H Lactate Calcium 7.7 L Total Bilirubin AST ALT Alkaline Phosphatase Total Protein Albumin Globulin Albumin/Globulin Ratio Lipase 07/03/18 07/03/18 14:02 14:02 WBC RBC Hgb Hct MCV MCH MCHC RDW Std Deviation RDW Coeff of Maria Fernanda Plt Count MPV Immature Gran % (Auto) Neut % (Auto) Lymph % (Auto) Perry % (Auto) Eos % (Auto) Baso % (Auto) Immature Gran # (Auto) Neut # (Auto) Lymph # (Auto) Perry # (Auto) Eos # (Auto) Baso # (Auto) Neutrophils % (Manual) Lymphocytes % (Manual) Monocytes % (Manual) Eosinophils % (Manual) Neutrophils # (Manual) Total Absolute Neuts Lymphocytes # (Manual) Total Abs Lymphocytes Monocytes # (Manual) Eosinophils # (Manual) Toxic Granulation Dohle Bodies RBC Morphology Sodium 137 Potassium 4.0 Chloride 106 Carbon Dioxide 24 Anion Gap 7.0 BUN 6 L Creatinine 0.64 Est Cr Clr Drug Dosing 78.0 Est GFR ( Amer) 107.0 Est GFR (Non-Af Amer) 92.3 BUN/Creatinine Ratio 10.1 Glucose 135 H Lactate 0.9 Calcium 7.9 L Total Bilirubin 0.5 AST 31 ALT 32 Alkaline Phosphatase 77 Total Protein 5.7 L Albumin 1.9 L Globulin 3.8 Albumin/Globulin Ratio 0.5 L Lipase [address] studies today: 1. There are numerous loops of thick walled and edematous small bowel identified in the lower abdomen and pelvis with associated interloop fluid and surrounding inflammatory change. The appearance is consistent with a nonspecific enteritis. This could be on an infectious, inflammatory, and/or ischemic basis. This represents a change from 07/01/2018, and clinical correlation will be essential. 2. There is a small volume of abdominopelvic ascites, which has increased from 07/01/2018. 3. No intraperitoneal free air, pneumatosis intestinalis, or portal venous gas is seen. 4. Small pleural effusions. These are new from 07/01/2018. 5. Again seen are postoperative changes consistent with a Whipple procedure. No bowel obstruction is identified. 6. Additional findings as above. Total Time Total Time Spent Total Time Spent (In Minutes): 35 Total Time Includes: Examination of the Patient, Discharge Planning, Medication Reconciliation and Communication With Other Providers Discharge Plan Discharge Items Patient Disposition: Transfer Acute Care Hospital Reason For Visit: HYPOTENSION Discharge Diagnosis: ischemic bowel disease, recent pancreatic cancer and Wipple surgery Condition: Serious Discharge Goals: Decrease discomfort and Diagnostic testing Activity: As commented below Non-emergency contact: Primary Care Provider Call non-emergency contact if: you have any medication questions Diet: See below Diet Comment: NPO Addtl Provider Instructions: I am transferring you to [facility] because of possible ischemic bowel disease, You had recent pancreatic surgery You need to follow-up with PCP as instructed and follow-up instructions from your surgical oncologist as instructed Prescriptions: No Action ondansetron HCl [Zofran] 8 mg Tablet 8 mg PO DAILY PRN (Reason: Nausea) RF: 0 loperamide [Imodium A-D] 2 mg Tablet 2 mg PO DIRECTED PRN (Reason: loose stools) RF: 0 capecitabine 500 mg Tablet 1,500 mg PO BID PRN (Reason: cycle) RF: 0 levothyroxine 100 mcg Tablet 100 mcg PO DAILY RF: 0 lansoprazole [Prevacid] 30 mg Capsule,Delayed Release(Dr/Ec) 30 mg PO DAILY RF: 0 losartan 100 mg Tablet 100 mg PO DAILY RF: 0 vwgarl-xofsxxae-doattvn [Creon] 36,000-114,000- 180,000 unit Capsule,Delayed Release(Dr/Ec) 2 cap PO WM RF: 0 axacpv-ldihkvvr-qkykxfc [Creon] 36,000-114,000- 180,000 unit Capsule,Delayed Release(Dr/Ec) 1 cap PO DIRECTED RF: 0 Stand-Alone Forms: My [facility] Discharge Orders: Discharge Order (Routine); Ordered 07/03/18 Ordered By: Raymond Olivas Admission Data Admit Date/Time: 07/01/18 17:23 Attending Provider: Raymond Olivas Admit Provider: Jeannette Oscar Primary Care Provider: Ari Hendrxi Other Providers: Jeannette Oscar ; Giovany Flynn ; Art Bay ; Caryn Martinez Service: Medical
--- NOTE | 2018-07-03 20:33 | Progress Note ---
Date of Service July 03, 2018 ~7:15 pm Received text page from nurse that the patient was being transferred to [place] this evening. However, her daytime physician (Dr. Olivas) had not completed the medication discharge summary. Per further discussion with the patient's nurse, she tried paging Dr. Olivas twice but received no reply. The nurse states that, per previous instructions from Dr. Olivas, the patient was not supposed to be transferred on any medications except IV fluids. Brief chart review: Patient is being transferred for ischemic bowel disease with history of recent Whipple surgery for pancreatic cancer. Saw patient at bedside: Transfer paramedics were in the room awaiting her discharge from the hospital. Exam: Deferred. Plan: - Discussed situation with Dr. Mohr. I will finalize her discharge medication reconcilliation to state that she is being discharged on zero medications. However, Dr. Olivas should contact [facility] stephanie regarding which medications he wishes the patient to have been transferred on. - Discussed this plan in person with patient's nurse who finalized the discharge paperwork stating the same. Genaro Sheets MD PGY2 overnight call Physical Exam 2 Vital Signs (Past 24 Hours): Last Vital Signs Temp 37.3 C 07/03/18 18:54 Pulse 83 07/03/18 18:54 Resp 20 07/03/18 18:54 BP 173/80 H 07/03/18 18:54 Pulse Ox 98 07/03/18 18:48
== END 2018-07-03 20:25 | disposition short-term general hospital (02) | DRG 314 ==
LOC: ED 09:35 → SUATTDRO 17:23 → 2N 17:23 → 4E 07-03 09:22